=== PATIENT | female | born 1975 | race Caucasian/White ===

== ENCOUNTER 2017-01-05 18:13 | Emergency (ER) | payer OTHER ==
[2015-11-06 15:50] VITALS: BP 142/74
[~2017-01-05] VITALS: Ht 154.9 cm; Wt 44.5 kg
[~2017-01-05 18:13] MED LIST: ALBU2.5V5 IH; CODE30SO2 PO; GUAI10LI PO; MELO7.5O2 PO; NPH,100V5 SQ; ONDA4TAB7 PO; OXYC10TA PO; [UNRECOGNIZED DRUG - OTHER]; novalog
--- NOTE | 2017-01-05 18:32 | PHYS DOC ---
Past Medical History Past Medical History: Diabetes-Type II, Hepatitis, Seizure, Schizophrenia, Other Additional Past Medical Histor: chronic joint pain, hepititis C,Lupus,OCD, Encephalitis(as child) Past Surgical History: Other Additional Past Surgical Histo: NERVE, BLADDER, FOOT, SPINE,LYMPH NODES, breast augmentation Alcohol Use: None Drug Use: Marijuana Adult General Chief Complaint Chief Complaint: RIB PAIN HPI HPI Patient is a 41 year old female presents to the emergency department stating that she has having right posterior rib pain and discomfort. She states that she fell a few days ago. She states the pain is increased when she coughs. Patient states I believe it's all muscular. Patient does have a history of lupus as well as schizophrenia. Patient states she's not taken any of her medications except for her seizure medication. She has not taken anything for pain and discomfort. Patient denies shortness of air difficulty breathing she denies chest pain or discomfort. Review of Systems Review of Systems Constitutional: Denies fever or chills [] Eyes: Denies change in visual acuity, redness, or eye pain [] HENT: Denies nasal congestion or sore throat [] Respiratory: Denies cough or shortness of breath [] Cardiovascular: No additional information not addressed in HPI [] GI: Denies abdominal pain, nausea, vomiting, bloody stools or diarrhea [] : Denies dysuria or hematuria [] Musculoskeletal: Denies back pain or joint pain [] Integument: Denies rash or skin lesions [] Neurologic: Denies headache, focal weakness or sensory changes [] Endocrine: Denies polyuria or polydipsia [] Allergies Allergies Allergies Coded Allergies Type Severity Reaction Last Updated Verified haloperidol Allergy Intermediate 01/23/14 Yes lorazepam Allergy Intermediate 01/23/14 Yes prochlorperazine Allergy Intermediate 01/23/14 Yes promethazine HCl Allergy Intermediate 01/23/14 Yes Physical Exam Physical Exam Constitutional: Well developed, well nourished, no acute distress, non-toxic appearance. [] HENT: Normocephalic, atraumatic, bilateral external ears normal, oropharynx moist, no oral exudates, nose normal. [] Eyes: PERRLA, EOMI, conjunctiva normal, no discharge. [] Neck: Normal range of motion, no tenderness, supple, no stridor. [] Cardiovascular:Heart rate regular rhythm, no murmur [] Lungs & Thorax: Bilateral breath sounds clear to auscultation [] Skin: Warm, dry, no erythema, no rash. [] Back: No tenderness Extremities: No tenderness, no cyanosis, no clubbing, ROM intact, no edema. [] Neurologic: Alert and oriented X 3, normal motor function, normal sensory function, no focal deficits noted. [] Psychologic: Affect normal, judgement normal, mood normal. [] Current Patient Data Vital Signs Vital Signs Date Time Temp Pulse Resp B/P (MAP) Pulse Ox O2 Delivery O2 Flow Rate FiO2 01/05/17 18:25 98.4 88 24 114/68 (83) 100 Room Air 98.4 Lab Values Laboratory Tests Test 01/05/17 18:20 Urine Opiates Screen Neg (NEG) Urine Methadone Screen Neg (NEG) Urine Barbiturates Neg (NEG) Urine Phencyclidine Screen Neg (NEG) Urine Amphetamine/Methamphetamine Neg (NEG) Urine Benzodiazepines Screen Neg (NEG) Urine Cocaine Screen Pos (NEG) Urine Cannabinoids Screen Neg (NEG) Urine Ethyl Alcohol Neg (NEG) EKG EKG EKG with a heart rate of 68 this was completed a 1824 sinus rhythm noted no STEMI per Dr. Mensah. [] Radiology/Procedures Radiology/Procedures [] Course & Med Decision Making Course & Med Decision Making Pertinent Labs and Imaging studies reviewed. (See chart for details) Patient was seen here approximately 2 months ago for left rib pain. She was that time was provided with Flexeril. Patient states that she is out of her Flexeril as well. She really feels as though her muscles are spasming. Chest x-ray was negative for any abnormalities no rib fractures noted at 1913. When and despite with patient regards to her urinalysis report with a positive cocaine that her drug screen. Rib fractures were negative. Patient was noted to have left AGAINST MEDICAL ADVICE. [] Dragon Disclaimer Dragon Disclaimer This electronic medical record was generated, in whole or in part, using a voice recognition dictation system. Departure Departure Impression: Primary Impression: Left against medical advice Additional Impression: Rib pain on right side Disposition: 07 AGAINST MEDICAL ADVICE Condition: STABLE Referrals: NO PCP (PCP) Problem Qualifiers HUNG BECKMAN APRN Jan 05, 2017 18:32
[2017-01-05 18:56] LABS: BARBITURATES NEG (NEG); BENZODIAZEPINES NEG (NEG); CANNABINOIDS NEG (NEG); COCAINE POS (NEG); METHADONE NEG (NEG); OPIATES NEG (NEG); PHENCYCLIDINE NEG (NEG)
--- NOTE | 2017-01-06 07:27 | RAD ---
Indication: Fall with right posterior rib pain. Time of exam 1838 hours. There is mild cortical irregularity involving the right posterior ninth rib, suspicious for a fracture. No displaced rib fracture is seen. No parenchymal contusion, effusion or pneumothorax is detected. Impression: Probable right posterior ninth rib fracture.
--- NOTE | 2017-01-06 08:47 | EKG ---
[facility] [address] [place] [address] Test Date: 2017-01-05 Test Time: 18:24:39 Pat Name: LEO EVANGELISTA Department: Room: Gender: F Investigation Specialist: : 1975 Requested By: STAFF NON Order Number: [id number] Reading MD: Measurements Intervals Mcgehee Rate: 68 P: 63 SD: 150 QRS: 72 QRSD: 74 T: 55 QT: 344 QTc: 370 Interpretive Statements SINUS RHYTHM LEFT ATRIAL ABNORMALITY RI6.01 Unconfirmed report No previous ECG available for comparison
== END 2017-01-05 19:50 | disposition left against medical advice (07) ==
LOC: ER 18:13
DX: R07.81 Pleurodynia (principal); E11.9 Type 2 diabetes mellitus without complications; F20.9 Schizophrenia, unspecified; F12.10 Cannabis abuse, uncomplicated; F42.9 Obsessive-compulsive disorder, unspecified; Z86.19 Personal history of other infectious and parasitic diseases; Z88.8 Allergy status to other drugs, medicaments and biological substances
CPT/HCPCS: 71101; 80305; 80320; 81025; 93005; G0481; 99285-25

== ENCOUNTER 2017-04-09 16:43 | Emergency (ER) | payer OTHER ==
[~2017-04-09] VITALS: Ht 154.9 cm; Wt 44.5 kg
[2017-04-09] MEDS ORDERED: ONDANSETRON PF 4 MG/2 ML VIAL. IV ONE (17:15)
[2017-04-09] MEDS ORDERED: HYDROmorphone 2 MG/ML VIAL IV ONE (17:15)
[2017-04-09] MEDS ORDERED: IV NORMAL SALINE 1000ML BAG 1,000 ML IV ONE (17:15)
[2017-04-09 17:32] LABS: BILIRUBIN,URINE NEGATIVE (NEG); GLUCOSE,URINE NEGATIVE (NEG); NITRITE,URINE NEGATIVE (NEG); PROTEIN,URINE NEGATIVE (NEG-TRACE)
[2017-04-09 17:38] LABS: BASO % 0 % (0-3); EOS % 3 % (0-3); HEMATOCRIT 36.7 % (36.0-47.0); HEMOGLOBIN 12.3 g/dL (12.0-15.5); LYMPH # 1.4 x10^3/uL (1.0-4.8); LYMPH % 25 % (24-48); MEAN CORPUSCULAR HEMOGLOBIN 31 pg (25-35); MEAN CORPUSCULAR HGB CONC 34 g/dL (31-37); MEAN CORPUSCULAR VOLUME 92 fL (79-100); MONO % 7 % (0-9); NEUT % 65 % (31-73); PLATELET COUNT 183 x10^3/uL (140-400); RED BLOOD COUNT 3.99 x10^6/uL (3.50-5.40); RED CELL DISTRIBUTION WIDTH 14.1 % (11.5-14.5); WHITE BLOOD COUNT 5.6 x10^3/uL (4.0-11.0)
[2017-04-09 17:39] LABS: BARBITURATES NEG (NEG); BENZODIAZEPINES NEG (NEG); CANNABINOIDS NEG (NEG); COCAINE POS (NEG); METHADONE NEG (NEG); OPIATES NEG (NEG); PHENCYCLIDINE NEG (NEG)
[2017-04-09 17:40] LABS: BACTERIA,URINE FEW /HPF (0-FEW); RBC,URINE OCC /HPF (0-2); SQUAMOUS EPITHELIAL CELL,UR FEW /LPF; WBC,URINE 0 /HPF (0-4)
[2017-04-09 17:53] LABS: CALCIUM 8.2 mg/dL (8.5-10.1); CREATININE 1.1 mg/dL (0.6-1.0); GFR 54.2; POTASSIUM 3.9 mmol/L (3.5-5.1)
[2017-04-09 17:57] VITALS: BP 148/67
[2017-04-09 17:59] LABS: ALBUMIN/GLOBULIN RATIO 0.9 (1.0-1.7); TOTAL BILIRUBIN 0.2 mg/dL (0.2-1.0); TOTAL PROTEIN 6.2 g/dL (6.4-8.2)
--- NOTE | 2017-04-09 18:16 | RAD ---
Indication: Right flank pain with history of stones. Solitary right kidney. Technique: Axial images and coronal and sagittal reformatted images are provided. Comparison is from January 16, 2015. One or more of the following individualized dose reduction techniques were utilized for this examination: 1. Automated exposure control 2. Adjustment of the mA and/or kV according to patient size 3. Use of iterative reconstruction technique Findings: There is dependent atelectasis. There is no pleural effusion. The heart is not enlarged. Breast implants are noted. Solid organ evaluation is limited without contrast. Evaluation of the abdomen is also limited given paucity of intra-abdominal fat. Liver is grossly unremarkable. Gallbladder is normal in appearance. Spleen is not enlarged. Pancreas and adrenals are not evaluated. There is a solitary right kidney. On coronal reformats there may be a single punctate nonobstructing right renal calculus. There is no obstructing calculus. Right ureter is not dilated. It cannot be followed. There is atheromatous disease in the abdominal aorta. There is gastric distention. Evaluation for small bowel obstruction or mural thickening is limited on this noncontrast study. There is moderate amount of stool in the colon. Appendix is not confidently identified. Evaluation for retroperitoneal adenopathy or mesenteric mass is limited. Bladder is mildly distended and without stone. There is no definite adnexal mass. There are presumed calcified phleboliths, appear stable. Bony structures are intact. IMPRESSION: 1. Punctate nonobstructing calculus in the solitary right kidney. No definite obstructing calculus. 2. Nonspecific gastric distention. 3. No acute abdominal findings. Evaluation is limited given lack of IV and oral contrast as well as paucity of intra-abdominal fat. Electronically signed by: Pasquale Valentine MD (04/09/2017 6:12 PM) [facility]
--- NOTE | 2017-04-09 19:01 | PHYS DOC ---
Past Medical History Past Medical History: Hepatitis, Seizure, Schizophrenia, UTI Additional Past Medical Histor: ENCEPHALITIS, PSYCHOSIS Past Surgical History: Additional Past Surgical Histo: BREAST IMPLANTS, PARATHYROIDECTOMY, FOOT RECONSTRUCTION Alcohol Use: None Drug Use: None Adult General Chief Complaint Chief Complaint: ABDOMINAL PAIN HPI HPI Patient is a 41 year old female with a history significant for hepatitis C, lupus, spina bifida, type 2 diabetes insulin-dependent, seizure disorder, schizophrenia, 2, no left kidney from , presents here today complaining of right sided kidney pain is been there for 3 days IN nature. Patient has any fevers shakes chills nausea vomiting diarrhea chest pain shortness of breath cough cold or rhinorrhea. Patient reports she does have hematuria. Patient admits to dysuria. Patient reports last by mouth intake was prior to arrival. Patient has any bright red blood per rectum. Patient reports she smokes and drinks but avidly denies any drug use. Review of systems: Constitutional: Denies fever or chills Eyes: Denies change in visual acuity, redness, or eye pain HENT: Denies nasal congestion or sore throat All other review systems are negative except as documented in the history of present illness. Physical exam: Constitutional: Well developed, well nourished, no acute distress, non-toxic appearance. HENT: Normocephalic, atraumatic, bilateral external ears normal, oropharynx moist, no oral exudates, nose normal. Eyes: PERRLA, EOMI, conjunctiva normal, no discharge. Neck: Normal range of motion, no tenderness, supple, no stridor. Cardiovascular:Heart rate regular rhythm, Lungs & Thorax: Bilateral breath sounds clear to auscultation Abdomen: Bowel sounds normal, soft, no tenderness, no masses, no pulsatile masses. Skin: Warm, dry, no erythema, no rash. Back: Tenderness to palpation to patient's right flank. Abdomen was soft nontender no rebound or guarding. Patient does not present with any signs or symptoms of be consistent with an acute surgical abdomen. Extremities: No tenderness, no cyanosis, no clubbing, ROM intact, no edema. Neurologic: Alert and oriented X 3, normal motor function, normal sensory function, no focal deficits noted. Psychologic: Affect normal, judgement normal, mood normal. Assessment and plan this is a 41-year-old female who presents here today complaining of right flank pain. Patient had a negative ER workup including a normal CBC, CMP, urinalysis. Of note the patient's urine drug screen was positive for cocaine despite Allison denying any drug use. Patient's CT scan of her abdomen pelvis revealed no acute pathology. Patient initially received a dose of Dilaudid and IV fluids in the ED. Toradol was withheld secondary to her history of only one kidney. Patient was approached about her deceptive behavior regarding her cocaine use and she admits to utilizing cocaine but was embarrassed to say so. I discussed with the patient that she needs to be honest and truthfulness future so that we can treat her appropriately and dressed other comments that she is making. Patient appears to be apologetic for her deceptive behavior. Patient's pain is most likely secondary to mechanical strain. Patient will be discharged home in stable condition to utilize Tylenol as needed for pain. Current Medications Current Medications Current Medications Medications (Trade) Dose Ordered Sig/Mayank Start Time Stop Time Status Last Admin Dose Admin Hydromorphone HCl (Dilaudid) 0.5 mg 1X ONCE 04/09/17 17:15 04/09/17 17:16 DC 04/09/17 17:45 0.5 MG Ondansetron HCl (Zofran) 4 mg 1X ONCE 04/09/17 17:15 04/09/17 17:16 DC 04/09/17 17:44 4 MG Sodium Chloride 1,000 ml @ 1,000 mls/hr 1X ONCE 04/09/17 17:15 04/09/17 18:14 DC 04/09/17 17:44 1,000 MLS/HR Allergies Allergies Allergies Coded Allergies Type Severity Reaction Last Updated Verified haloperidol Allergy Intermediate 01/23/14 Yes lorazepam Allergy Intermediate 01/23/14 Yes prochlorperazine Allergy Intermediate 01/23/14 Yes promethazine HCl Allergy Intermediate 01/23/14 Yes Current Patient Data Vital Signs Vital Signs Date Time Temp Pulse Resp B/P (MAP) Pulse Ox O2 Delivery O2 Flow Rate FiO2 04/09/17 17:57 90 148/67 (94) Room Air 04/09/17 16:43 97.7 17 93 97.7 Lab Values Laboratory Tests Test 04/09/17 17:19 04/09/17 17:24 9/28/17 17:30 Urine Collection Type Unknown Urine Color Yellow Urine Clarity Clear Urine pH 7.0 Urine Specific Snowflake 1.025 Urine Protein Negative mg/dL (NEG-TRACE) Urine Glucose (UA) Negative mg/dL (NEG) Urine Ketones (Stick) Negative mg/dL (NEG) Urine Blood Negative (NEG) Urine Nitrite Negative (NEG) Urine Bilirubin Negative (NEG) Urine Urobilinogen Dipstick 1.0 mg/dL (0.2 mg/dL) Urine Leukocyte Esterase Negative (NEG) Urine RBC Occ /HPF (0-2) Urine WBC 0 /HPF (0-4) Urine Squamous Epithelial Cells Few /LPF Urine Bacteria Few /HPF (0-FEW) Urine Mucus Marked /LPF Urine Opiates Screen Neg (NEG) Urine Methadone Screen Neg (NEG) Urine Barbiturates Neg (NEG) Urine Phencyclidine Screen Neg (NEG) Urine Amphetamine/Methamphetamine Neg (NEG) Urine Benzodiazepines Screen Neg (NEG) Urine Cocaine Screen Pos (NEG) Urine Cannabinoids Screen Neg (NEG) Urine Ethyl Alcohol Neg (NEG) POC Urine HCG, Qualitative Hcg negative (Negative) White Blood Count 5.6 x10^3/uL (4.0-11.0) Red Blood Count 3.99 x10^6/uL (3.50-5.40) Hemoglobin 12.3 g/dL (12.0-15.5) Hematocrit 36.7 % (36.0-47.0) Mean Corpuscular Volume 92 fL (79-100) Mean Corpuscular Hemoglobin 31 pg (25-35) Mean Corpuscular Hemoglobin Concent 34 g/dL (31-37) Red Cell Distribution Width 14.1 % (11.5-14.5) Platelet Count 183 x10^3/uL (140-400) Neutrophils (%) (Auto) 65 % (31-73) Lymphocytes (%) (Auto) 25 % (24-48) Monocytes (%) (Auto) 7 % (0-9) Eosinophils (%) (Auto) 3 % (0-3) Basophils (%) (Auto) 0 % (0-3) Neutrophils # (Auto) 3.6 x10^3uL (1.8-7.7) Lymphocytes # (Auto) 1.4 x10^3/uL (1.0-4.8) Monocytes # (Auto) 0.4 x10^3/uL (0.0-1.1) Eosinophils # (Auto) 0.2 x10^3/uL (0.0-0.7) Basophils # (Auto) 0.0 x10^3/uL (0.0-0.2) Sodium Level 143 mmol/L (136-145) Potassium Level 3.9 mmol/L (3.5-5.1) Chloride Level 107 mmol/L (98-107) Carbon Dioxide Level 28 mmol/L (21-32) Anion Gap 8 (6-14) Blood Urea Nitrogen 17 mg/dL (7-20) Creatinine 1.1 mg/dL (0.6-1.0) H Estimated GFR (Cockcroft-Gault) 54.2 BUN/Creatinine Ratio 15 (6-20) Glucose Level 110 mg/dL (70-99) H Calcium Level 8.2 mg/dL (8.5-10.1) L Total Bilirubin 0.2 mg/dL (0.2-1.0) Aspartate Amino Transferase (AST) 17 U/L (15-37) Alanine Aminotransferase (ALT) 17 U/L (14-59) Alkaline Phosphatase 85 U/L (46-116) Total Protein 6.2 g/dL (6.4-8.2) L Albumin 3.0 g/dL (3.4-5.0) L Albumin/Globulin Ratio 0.9 (1.0-1.7) L Laboratory Tests 04/09/17 17:30 Laboratory Tests 04/09/17 17:30 EKG EKG [] Radiology/Procedures Radiology/Procedures [] Course & Med Decision Making Course & Med Decision Making Pertinent Labs and Imaging studies reviewed. (See chart for details) [] Dragon Disclaimer Dragon Disclaimer This electronic medical record was generated, in whole or in part, using a voice recognition dictation system. Departure Departure Impression: Primary Impression: Cocaine use Additional Impression: Back pain Disposition: 01 HOME, SELF-CARE Condition: IMPROVED Referrals: MARTHA AMAYA MD (PCP) Patient Instructions: Back Pain, Adult, Cocaine Abuse-Brief Problem Qualifiers KAISER MOLINA MD Apr 09, 2017 19:01
== END 2017-04-09 19:26 | disposition home or self-care (01) ==
LOC: ER 16:43
DX: M54.89 Other dorsalgia (principal); R31.9 Hematuria, unspecified; R30.0 Dysuria; F14.90 Cocaine use, unspecified, uncomplicated; Z87.440 Personal history of urinary (tract) infections; Z86.19 Personal history of other infectious and parasitic diseases; E11.9 Type 2 diabetes mellitus without complications; G40.909 Epilepsy, unspecified, not intractable, without status epilepticus; F20.9 Schizophrenia, unspecified; Z88.4 Allergy status to anesthetic agent; Z88.8 Allergy status to other drugs, medicaments and biological substances
CPT/HCPCS: 36415; 74176; 80053; 80307; 81001; 81025; 85025; 96361; 96374; 96375; 99285; J1170; J2405; J7030; G0479

== ENCOUNTER 2017-08-22 11:51 | Emergency (ER) | payer OTHER | END 2017-08-22 13:02 | disposition home or self-care (01) | LOC: ER 11:51 | DX: L25.9 Unspecified contact dermatitis, unspecified cause (principal); E11.9 Type 2 diabetes mellitus without complications; F20.9 Schizophrenia, unspecified; F12.10 Cannabis abuse, uncomplicated; Z88.8 Allergy status to other drugs, medicaments and biological substances | CPT/HCPCS: 99283 ==

== ENCOUNTER 2018-01-30 18:01 | Emergency (ER) | payer OTHER ==
[2018-01-30 18:37] LABS: URINE HCG POC HCG NEGATIVE (Negative)
[2018-01-30] MEDS ORDERED: IV NORMAL SALINE 1000ML BAG 1,000 ML IV (18:45)
[2018-01-30] MEDS: ONDANSETRON PF 4 MG/2 ML VIAL. IV (18:48)
[2018-01-30] MEDS: IV NORMAL SALINE 1000ML BAG 1,000 ML IV (18:48)
[2018-01-30] MEDS: ACETAMINOPHEN 325 MG TABLET. PO (18:49)
[2018-01-30 19:04] LABS: BILIRUBIN,URINE NEGATIVE (NEG); CLARITY,URINE CLOUDY; COLOR,URINE YELLOW; GLUCOSE,URINE NEGATIVE (NEG); NITRITE,URINE POSITIVE (NEG); PROTEIN,URINE 100 mg/dL (NEG-TRACE); UROBILINOGEN,URINE 0.2 mg/dL (0.2 mg/dL)
[2018-01-30 19:28] LABS: BASO % 0 % (0-3); EOS % 0 % (0-3); HEMATOCRIT 43.6 % (36.0-47.0); HEMOGLOBIN 14.8 g/dL (12.0-15.5); LYMPH # 0.4 x10^3/uL (1.0-4.8); LYMPH % 4 % (24-48); MEAN CORPUSCULAR HEMOGLOBIN 31 pg (25-35); MEAN CORPUSCULAR HGB CONC 34 g/dL (31-37); MEAN CORPUSCULAR VOLUME 91 fL (79-100); MONO # 0.6 x10^3/uL (0.0-1.1); MONO % 6 % (0-9); NEUT # 10.1 x10^3uL (1.8-7.7); NEUT % 90 % (31-73); PLATELET COUNT 226 x10^3/uL (140-400); RED BLOOD COUNT 4.82 x10^6/uL (3.50-5.40); RED CELL DISTRIBUTION WIDTH 14.2 % (11.5-14.5); WHITE BLOOD COUNT 11.3 x10^3/uL (4.0-11.0)
[2018-01-30 19:30] LABS: ADD MAN DIFF? YES
[2018-01-30 19:34] LABS: ANION GAP 8 (6-14); BLOOD UREA NITROGEN 16 mg/dL (7-20); BUN/CREATININE RATIO 12 (6-20); CALCIUM 9.2 mg/dL (8.5-10.1); CARBON DIOXIDE 28 mmol/L (21-32); CHLORIDE 100 mmol/L (98-107); CREATININE 1.3 mg/dL (0.6-1.0); GFR 44.5; GLUCOSE 128 mg/dL (70-99); SODIUM 136 mmol/L (136-145)
[2018-01-30 19:37] LABS: BACTERIA,URINE MANY /HPF (0-FEW); RBC,URINE 20-40 /HPF (0-2); SQUAMOUS EPITHELIAL CELL,UR MANY /LPF; WBC,URINE TNTC /HPF (0-4)
[2018-01-30] MEDS: KETOROLAC 30 MG/ML INJ. IV (19:45)
[2018-01-30 19:50] LABS: ALBUMIN 3.3 g/dL (3.4-5.0); ALBUMIN/GLOBULIN RATIO 0.8 (1.0-1.7); ALK PHOS 74 U/L (46-116); ALT (SGPT) 22 U/L (14-59); AST (SGOT) 15 U/L (15-37); TOTAL BILIRUBIN 0.6 mg/dL (0.2-1.0); TOTAL PROTEIN 7.6 g/dL (6.4-8.2)
[2018-01-30] MEDS ORDERED: AZITHROMYCIN 250 MG TABLET. PO (20:00)
[2018-01-30] MEDS ORDERED: cefTRIAXone IM 1 GM VIAL IM ×2 (20:38→21:00)
[2018-01-30 20:51] LABS: % BANDS 7 % (0-9); % LYMPHS 3 % (24-48); % MONOS 5 % (0-10); % SEGS 85 % (35-66); PLT ESTIMATE ADEQUATE (ADEQUATE)
== END 2018-01-30 20:40 | disposition left against medical advice (07) ==
LOC: ER 20:40
DX: N39.0 Urinary tract infection, site not specified (principal); R00.0 Tachycardia, unspecified; F20.9 Schizophrenia, unspecified; Z88.8 Allergy status to other drugs, medicaments and biological substances
CPT/HCPCS: 36415; 80053; 81001; 81025; 85007; 85025; 96374; 96375; 99284-25; J1885; J2405; J7030

== ENCOUNTER 2018-05-15 16:00 | Emergency (ER) | payer OTHER ==
[~2018-05-15] VITALS: Ht 152.4 cm; Wt 45.4 kg
[~2018-05-15 16:00] MED LIST changes: +CIPR500T94 PO; +CLOB15OI TP; +INSU100I17 SQ; +MUPI22OI2 TP
[2018-05-15 16:12] VITALS: BP 155/96
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
== END 2018-05-15 16:26 | disposition left against medical advice (07) ==
LOC: ER 16:00
DX: S13.9XXA Sprain of joints and ligaments of unspecified parts of neck, initial encounter (principal); S00.33XA Contusion of nose, initial encounter; M54.5 Low back pain; M25.561 Pain in right knee; M25.562 Pain in left knee; M79.642 Pain in left hand; F20.9 Schizophrenia, unspecified; Z88.8 Allergy status to other drugs, medicaments and biological substances; V49.9XXA Car occupant (driver) (passenger) injured in unspecified traffic accident, initial encounter; Y93.89 Activity, other specified; Y92.488 Other paved roadways as the place of occurrence of the external cause; Y99.8 Other external cause status
CPT/HCPCS: 99281

== ENCOUNTER 2018-11-14 09:48 | Emergency (ER) | payer OTHER, SELFPAY ==
[~2018-11-14] VITALS: Ht 157.5 cm; Wt 45.4 kg
[2018-11-14 10:04] VITALS: BP 122/71
[2018-11-14 10:23] LABS: BILIRUBIN,URINE NEGATIVE (NEG); CLARITY,URINE CLOUDY; COLOR,URINE YELLOW; NITRITE,URINE NEGATIVE (NEG); PROTEIN,URINE 30 mg/dL (NEG-TRACE); UROBILINOGEN,URINE 0.2 mg/dL (0.2 mg/dL)
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
[2018-11-14 10:37] LABS: BACTERIA,URINE MANY /HPF (0-FEW); SQUAMOUS EPITHELIAL CELL,UR MOD /LPF; WBC,URINE TNTC /HPF (0-4)
[2018-11-14] MEDS ORDERED: FLUC150T PO (10:54)
[2018-11-14] MEDS ORDERED: SULF1TAB24 PO (10:54)
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
== END 2018-11-14 10:59 | disposition home or self-care (01) ==
LOC: ER 09:48
DX: S60.012A Contusion of left thumb without damage to nail, initial encounter (principal); N39.0 Urinary tract infection, site not specified; F20.9 Schizophrenia, unspecified; Z72.0 Tobacco use; Z71.6 Tobacco abuse counseling; Z88.8 Allergy status to other drugs, medicaments and biological substances; X58.XXXA Exposure to other specified factors, initial encounter; Y93.89 Activity, other specified; Y92.89 Other specified places as the place of occurrence of the external cause; Y99.8 Other external cause status
CPT/HCPCS: 73140; 81001; 87086; 99285-25

== ENCOUNTER 2019-07-05 23:04 | Emergency (ER) | payer OTHER ==
[~2019-07-05] VITALS: Ht 154.9 cm; Wt 46.3 kg
[~2019-07-05 23:04] MED LIST changes: +FLUC150T PO; +ONDA4TAB12 PO; +SULF1TAB24 PO
[2019-07-05 23:13] VITALS: BP 151/85
--- NOTE | 2019-07-05 23:24 | PHYS DOC ---
Past Medical History Past Medical History: Diabetes-Type II, Schizophrenia, Other Additional Past Medical Histor: LUPUS, HEP C, MULTIPLE PERSONALITY DISORDER, PSYCHOSIS Past Surgical History: , Tubal ligation Additional Past Surgical Histo: L FOOT, BREAST AUGMENTATION Alcohol Use: None Drug Use: Cocaine, Marijuana Attending Signature I have participated in the care of this patient and I have reviewed and agree with all pertinent clinical information above including history, exam, and recommendations. Adult General Chief Complaint Chief Complaint: FOOT INJURY PAIN HPI HPI 43-year-old female known insulin-dependent diabetes presents to the emergency Department complaints of left foot pain primarily the plantar aspect of her foot. She denies any drainage, has had some chills. She denies any fever. States the pain started 2 days ago worsening today. She has a history metatarsal amputation at the age of 4. She states she does not take medications and has not for a number of months. Patient states even pain worse present of the ER for further evaluation. Blood sugar emergency department is 163. Review of Systems Review of Systems Constitutional: chills Respiratory: Denies cough or shortness of breath [] Cardiovascular: No additional information not addressed in HPI [] GI: Denies abdominal pain, nausea, vomiting, bloody stools or diarrhea [] Musculoskeletal: left foot pain Integument: Denies rash or skin lesions [] Neurologic: Denies headache, focal weakness or sensory changes [] All other systems were reviewed and found to be within normal limits, except as documented in this note. Allergies Allergies Allergies Coded Allergies Type Severity Reaction Last Updated Verified haloperidol Allergy Intermediate 01/23/14 Yes lorazepam Allergy Intermediate 01/23/14 Yes prochlorperazine Allergy Intermediate 01/23/14 Yes promethazine HCl Allergy Intermediate 01/23/14 Yes Physical Exam Physical Exam Constitutional: Well developed, well nourished, no acute distress, non-toxic appearance. [] HENT: Normocephalic, atraumatic, bilateral external ears normal, oropharynx moist, no oral exudates, nose normal. [] Cardiovascular:Heart rate regular rhythm, no murmur [] Lungs & Thorax: Bilateral breath sounds clear to auscultation [] Abdomen: Bowel sounds normal, soft, no tenderness, no masses, no pulsatile masses. [] Skin: Warm, dry, no erythema, no rash. [] Back: No tenderness, no CVA tenderness. [] Extremities: No tenderness, o edema. 3rd metatarsal amputation at the age of 4yo[] Neurologic: Alert and oriented X 3, no focal deficits noted. [] Psychologic: Affect normal, judgement normal, mood normal. [] Current Patient Data Vital Signs Vital Signs Date Time Temp Pulse Resp B/P (MAP) Pulse Ox O2 Delivery O2 Flow Rate FiO2 07/05/19 23:13 101 22 151/85 (107) 98 Room Air 07/05/19 23:10 98.4 98.4 Lab Values Laboratory Tests Test 07/05/19 23:17 07/05/19 23:30 Glucose (Fingerstick) 163 mg/dL (70-99) H White Blood Count 6.1 x10^3/uL (4.0-11.0) Red Blood Count 4.52 x10^6/uL (3.50-5.40) Hemoglobin 13.8 g/dL (12.0-15.5) Hematocrit 41.1 % (36.0-47.0) Mean Corpuscular Volume 91 fL (79-100) Mean Corpuscular Hemoglobin 31 pg (25-35) Mean Corpuscular Hemoglobin Concent 34 g/dL (31-37) Red Cell Distribution Width 14.6 % (11.5-14.5) H Platelet Count 191 x10^3/uL (140-400) Neutrophils (%) (Auto) 70 % (31-73) Lymphocytes (%) (Auto) 20 % (24-48) L Monocytes (%) (Auto) 8 % (0-9) Eosinophils (%) (Auto) 1 % (0-3) Basophils (%) (Auto) 1 % (0-3) Neutrophils # (Auto) 4.3 x10^3/uL (1.8-7.7) Lymphocytes # (Auto) 1.2 x10^3/uL (1.0-4.8) Monocytes # (Auto) 0.5 x10^3/uL (0.0-1.1) Eosinophils # (Auto) 0.1 x10^3/uL (0.0-0.7) Basophils # (Auto) 0.1 x10^3/uL (0.0-0.2) Sodium Level 141 mmol/L (136-145) Potassium Level 3.8 mmol/L (3.5-5.1) Chloride Level 103 mmol/L (98-107) Carbon Dioxide Level 26 mmol/L (21-32) Anion Gap 12 (6-14) Blood Urea Nitrogen 20 mg/dL (7-20) Creatinine 1.3 mg/dL (0.6-1.0) H Estimated GFR (Cockcroft-Gault) 44.3 BUN/Creatinine Ratio 15 (6-20) Glucose Level 156 mg/dL (70-99) H Lactic Acid Level 2.4 mmol/L (0.4-2.0) H Calcium Level 8.8 mg/dL (8.5-10.1) Total Bilirubin 0.3 mg/dL (0.2-1.0) Aspartate Amino Transferase (AST) 20 U/L (15-37) Alanine Aminotransferase (ALT) 14 U/L (14-59) Alkaline Phosphatase 71 U/L (46-116) Total Protein 7.3 g/dL (6.4-8.2) Albumin 3.6 g/dL (3.4-5.0) Albumin/Globulin Ratio 1.0 (1.0-1.7) Laboratory Tests 07/05/19 23:30 Laboratory Tests 07/05/19 23:30 EKG EKG [] Radiology/Procedures Radiology/Procedures [] Course & Med Decision Making Course & Med Decision Making Pertinent Labs and Imaging studies reviewed. (See chart for details) []43-year-old female known insulin-dependent diabetes presents to the emergency Department complaints of left foot pain primarily the plantar aspect of her foot. She denies any drainage, has had some chills. She denies any fever. States the pain started 2 days ago worsening today. She has a history metatarsal amputation at the age of 4. She states she does not take medications and has not for a number of months. Patient states even pain worse present of the ER for further evaluation. Blood sugar emergency department is 163. Call from nurse that the patient requested to leave against medical economics consultant Form signed per patient Recommend follow up with her PCP Labs reviewed what was back however no official read of xray at this time Dragon Disclaimer Dragon Disclaimer This electronic medical record was generated, in whole or in part, using a voice recognition dictation system. Departure Departure Impression: Primary Impression: Foot pain, left Disposition: AGAINST MEDICAL ADVICE Condition: STABLE Referrals: NO PCP (PCP) Patient Instructions: Discharge Against Medical Advice LENI MAXWELL MD Jul 05, 2019 23:24
[2019-07-05 23:41] LABS: BASO # 0.1 x10^3/uL (0.0-0.2); BASO % 1 % (0-3); EOS # 0.1 x10^3/uL (0.0-0.7); EOS % 1 % (0-3); HEMATOCRIT 41.1 % (36.0-47.0); HEMOGLOBIN 13.8 g/dL (12.0-15.5); LYMPH # 1.2 x10^3/uL (1.0-4.8); LYMPH % 20 % (24-48); MEAN CORPUSCULAR HEMOGLOBIN 31 pg (25-35); MEAN CORPUSCULAR HGB CONC 34 g/dL (31-37); MEAN CORPUSCULAR VOLUME 91 fL (79-100); MONO # 0.5 x10^3/uL (0.0-1.1); MONO % 8 % (0-9); NEUT # 4.3 x10^3/uL (1.8-7.7); NEUT % 70 % (31-73); PLATELET COUNT 191 x10^3/uL (140-400); RED BLOOD COUNT 4.52 x10^6/uL (3.50-5.40); RED CELL DISTRIBUTION WIDTH 14.6 % (11.5-14.5); WHITE BLOOD COUNT 6.1 x10^3/uL (4.0-11.0)
[2019-07-05 23:47] LABS: CALCIUM 8.8 mg/dL (8.5-10.1); CREATININE 1.3 mg/dL (0.6-1.0); GFR 44.3; POTASSIUM 3.8 mmol/L (3.5-5.1)
[2019-07-05 23:53] LABS: ALBUMIN 3.6 g/dL (3.4-5.0); TOTAL BILIRUBIN 0.3 mg/dL (0.2-1.0); TOTAL PROTEIN 7.3 g/dL (6.4-8.2)
--- NOTE | 2019-07-06 00:42 | RAD ---
Exam: Left foot 3 views INDICATION: Concern for infection/foreign body TECHNIQUE: Frontal, lateral and oblique views of the left foot Comparisons: None FINDINGS: Amputation deformity at the third digit is noted. There is mild soft tissue swelling noted at the level of the metatarsal heads. Bone mineralization is normal. No acute or healed fractures. No radiopaque foreign body identified. IMPRESSION: Amputation of the third digit with soft tissue swelling at the level of the metatarsal heads. No radiopaque foreign body identified. Electronically signed by: Juan Luis Munoz MD (07/06/2019 12:39 AM) [facility]
== END 2019-07-05 23:50 | disposition left against medical advice (07) ==
LOC: ER 23:04
DX: M79.672 Pain in left foot (principal); E11.9 Type 2 diabetes mellitus without complications; F20.9 Schizophrenia, unspecified; M32.9 Systemic lupus erythematosus, unspecified; Z88.8 Allergy status to other drugs, medicaments and biological substances
CPT/HCPCS: 36415; 73630; 80053; 82962; 83605; 85025; 87040; 87205; 99285-25

== ENCOUNTER 2019-07-07 01:09 | Emergency (ER) | payer OTHER ==
[~2019-07-07] VITALS: Ht 154.9 cm; Wt 46.3 kg
[2019-07-07 01:25] VITALS: BP 152/80
--- NOTE | 2019-07-07 01:51 | PHYS DOC ---
Past Medical History Past Medical History: Diabetes-Type II, Schizophrenia, Other Additional Past Medical Histor: LUPUS, HEP C, MULTIPLE PERSONALITY DISORDER, PSYCHOSIS Past Surgical History: , Tubal ligation Additional Past Surgical Histo: L FOOT, BREAST AUGMENTATION Alcohol Use: None Drug Use: Cocaine, Marijuana Adult General Chief Complaint Chief Complaint: FOOT INJURY PAIN [facility] HPI 43-year-old female with underlying history of diabetes, schizophrenia, substance abuse presents to the emergency department complaining of left foot pain. Patient was seen on 1223 for similar complaints however left against clinical medical assistant. Laboratory values as well as x-rays reviewed from 122 and not repeated today given no change in patient's physical examination. Patient denies fever, nausea, vomiting, chest pain, shortness of breath. She complains of pain to her left foot. All other ROS negative unless documented in HPI Review of Systems Review of Systems See Above Allergies Allergies Allergies Coded Allergies Type Severity Reaction Last Updated Verified haloperidol Allergy Intermediate 01/23/14 Yes lorazepam Allergy Intermediate 01/23/14 Yes prochlorperazine Allergy Intermediate 01/23/14 Yes promethazine HCl Allergy Intermediate 01/23/14 Yes Physical Exam Physical Exam See Above Constitutional: Well developed, well nourished, no acute distress, non-toxic appearance. [] HENT: Normocephalic, atraumatic, bilateral external ears normal, oropharynx moist, no oral exudates, nose normal. [] Eyes: PERRLA, EOMI, conjunctiva normal, no discharge. [] Cardiovascular:Heart rate regular rhythm, no murmur [] Lungs & Thorax: Bilateral breath sounds clear to auscultation [] Skin: Warm, dry, no erythema, no rash. [] Extremities: No tenderness, no cyanosis, no clubbing, ROM intact, no edema, left foot with callus appreciated to the bottom aspect of foot, she is missing her third digit secondary to surgery at the age 4, no evidence of signs of inflammation or infection at this time no drainage appreciated [] Neurologic: Alert and oriented X 3, no focal deficits noted. [] Psychologic: Affect normal, judgement normal, mood normal. [] Current Patient Data Vital Signs Vital Signs Date Time Temp Pulse Resp B/P (MAP) Pulse Ox O2 Delivery O2 Flow Rate FiO2 07/07/19 01:25 97.7 102 19 152/80 (104) 98 Room Air 97.7 EKG EKG [] Radiology/Procedures Radiology/Procedures [] Course & Med Decision Making Course & Med Decision Making Pertinent Labs and Imaging studies reviewed. (See chart for details) []43-year-old female with underlying history of diabetes, schizophrenia, substance abuse presents to the emergency department complaining of left foot pain. Patient was seen on 1223 for similar complaints however left against clinical medical assistant. Laboratory values as well as x-rays reviewed from 1223 and not repeated today given no change in patient's physical examination. Patient denies fever, nausea, vomiting, chest pain, shortness of breath. She complains of pain to her left foot. Labs reviewed from 07/05, white blood for count within normal limits, patient is afebrile on examination, lactic acid was mildly elevated 2.4 yesterday however no signs of infection. X-ray reviewed with evidence of no findings of foreign body or concern for degradation of bone. Testes findings with the patient recommended no repeat evaluation of this time. Discussed finding primary care physician and follow-up with podiatry given her underlying diabetes and no treatment or follow-up. Patient was also counseled on her multiple visits with AGAINST MEDICAL ADVICE leaving. Dragon Disclaimer Dragon Disclaimer This electronic medical record was generated, in whole or in part, using a voice recognition dictation system. Departure Departure Impression: Primary Impression: Left foot pain Disposition: HOME, SELF-CARE Condition: STABLE Referrals: NO PCP (PCP) Patient Instructions: Pain of Unknown Etiology (Pain without a known Cause) Additional Instructions: Recommend follow up with PCP 3 - 5 days Return to the ER with worsening symptoms, intractable pain, fever, altered mental status Tylenol/Motrin as needed for pain Xray from 07/05 negative for foreign body, labs from 07/05 negative for acute findings WBC normal No signs of infection LENI MAXWELL MD Jul 07, 2019 01:51
== END 2019-07-07 02:00 | disposition home or self-care (01) ==
LOC: ER 01:09
DX: M79.672 Pain in left foot (principal); E11.9 Type 2 diabetes mellitus without complications; F20.9 Schizophrenia, unspecified; M32.9 Systemic lupus erythematosus, unspecified; Z98.51 Tubal ligation status; Z88.8 Allergy status to other drugs, medicaments and biological substances
CPT/HCPCS: 99281

== ENCOUNTER 2019-12-25 17:02 | Emergency (ER) | payer OTHER ==
[~2019-12-25] VITALS: Ht 152.4 cm; Wt 45.0 kg
[2019-12-25 17:41] LABS: BILIRUBIN,URINE NEGATIVE (NEG); CLARITY,URINE CLEAR; COLOR,URINE YELLOW; NITRITE,URINE NEGATIVE (NEG); PROTEIN,URINE NEGATIVE (NEG-TRACE); UROBILINOGEN,URINE 0.2 mg/dL (0.2 mg/dL)
[2019-12-25 17:47] LABS: BACTERIA,URINE MANY /HPF (0-FEW); RBC,URINE OCC /HPF (0-2); SQUAMOUS EPITHELIAL CELL,UR MANY /LPF; WBC,URINE 0 /HPF (0-4)
[2019-12-25] MEDS ORDERED: IV NORMAL SALINE 1000ML BAG 1,000 ML IV SCH (18:18)
[2019-12-25 18:29] LABS: BASO % 1 % (0-3); EOS # 0.1 x10^3/uL (0.0-0.7); EOS % 3 % (0-3); HEMOGLOBIN 14.1 g/dL (12.0-15.5); LYMPH # 1.3 x10^3/uL (1.0-4.8); LYMPH % 26 % (24-48); MEAN CORPUSCULAR HEMOGLOBIN 31 pg (25-35); MEAN CORPUSCULAR HGB CONC 34 g/dL (31-37); MEAN CORPUSCULAR VOLUME 91 fL (79-100); MONO # 0.3 x10^3/uL (0.0-1.1); MONO % 7 % (0-9); NEUT # 3.2 x10^3/uL (1.8-7.7); NEUT % 64 % (31-73); PLATELET COUNT 213 x10^3/uL (140-400); RED BLOOD COUNT 4.52 x10^6/uL (3.50-5.40); RED CELL DISTRIBUTION WIDTH 14.2 % (11.5-14.5)
[2019-12-25] MEDS ORDERED: ONDANSETRON PF 4 MG/2 ML VIAL. IVP ONE (18:30)
[2019-12-25 18:36] LABS: CALCIUM 8.5 mg/dL (8.5-10.1); CREATININE 1.2 mg/dL (0.6-1.0); GFR 48.4; POTASSIUM 4.5 mmol/L (3.5-5.1)
[2019-12-25 18:38] LABS: BARBITURATES NEG (NEG); BENZODIAZEPINES NEG (NEG); CANNABINOIDS POS (NEG); COCAINE POS (NEG); METHADONE NEG (NEG); OPIATES NEG (NEG); PHENCYCLIDINE NEG (NEG)
[2019-12-25 18:40] LABS: AMPHETAMINE/METHAMPHETAMINE POS (NEG)
[2019-12-25 18:41] LABS: ALBUMIN 3.2 g/dL (3.4-5.0); ALBUMIN/GLOBULIN RATIO 1.1 (1.0-1.7); TOTAL BILIRUBIN 0.1 mg/dL (0.2-1.0)
[2019-12-25] MEDS ORDERED: fentaNYL PF VIAL 100 MCG/2 ML VIAL IVP ONE (18:45)
[2019-12-25] MEDS ORDERED: fentaNYL PF VIAL 100 MCG/2 ML VIAL ONE (18:55)
[2019-12-25 19:02] VITALS: BP 111/61
--- NOTE | 2019-12-25 19:02 | PHYS DOC ---
Past Medical History Past Medical History: Diabetes-Type II, Hypertension, Hepatitis, Schizophrenia, Other Additional Past Medical Histor: LUPUS, HEP C Past Surgical History: , Tubal ligation Additional Past Surgical Histo: L FOOT, BREAST AUGMENTATION Smoking Status: Current Every Day Smoker Alcohol Use: None Drug Use: Cocaine, Marijuana General Adult EDM: Chief Complaint: ABDOMINAL PAIN HPI: HPI: Patient is a 44 year old female who presents with complaint of lower abdominal pain as well as lower back pain and pain with urination for the last few days. Patient also indicates that she had a seizure 3 days ago and thinks it was about a week before that for her prior seizure. Patient indicates that she has a history of seizures and has not been on her seizure medication for over 2 years. Patient states that she thinks she has a urinary tract infection. She denies any chest pain or shortness of breath. She also denies any fever. She rates pain in her lower abdomen and back to a 7 out of 10. She denies any vomiting or diarrhea. [] Review of Systems: Review of Systems: Constitutional: Denies fever or chills. [] Respiratory: Denies cough or shortness of breath. [] Cardiovascular: Denies chest pain or edema. [] GI: Complains of lower abdominal pain without vomiting or diarrhea. [] : Complains of dysuria. [] Musculoskeletal: Complains of lower back pain. [] Integument: Denies rash. [] Neurologic: Denies headache, focal weakness or sensory changes. Positive seizures [] A full 10 point review of systems has been reviewed and is otherwise negative. Heart Score: Risk Factors: Risk Factors: DM, Current or recent (<one month) smoker, HTN, HLP, family history of CAD, obesity. Risk Scores: Score 0 - 3: 2.5% MACE over next 6 weeks - Discharge Home Score 4 - 6: 20.3% MACE over next 6 weeks - Admit for Clinical Observation Score 7 - 10: 72.7% MACE over next 6 weeks - Early Invasive Strategies Current Medications: Current Medications Medications (Trade) Dose Ordered Sig/Mayank Start Time Stop Time Status Last Admin Dose Admin Fentanyl Citrate (Fentanyl 2ml Vial) 100 mcg STK-MED ONCE 12/25/19 18:55 12/25/19 18:55 DC Ondansetron HCl (Zofran) 4 mg 1X ONCE 12/25/19 18:30 12/25/19 18:31 DC Sodium Chloride 1,000 ml @ 1,000 mls/hr Q1H 12/25/19 18:18 12/25/19 19:17 Allergies: Allergies: Allergies Coded Allergies Type Severity Reaction Last Updated Verified haloperidol Allergy Intermediate 01/23/14 Yes lorazepam Allergy Intermediate 01/23/14 Yes prochlorperazine Allergy Intermediate 01/23/14 Yes promethazine HCl Allergy Intermediate 01/23/14 Yes Physical Exam: PE: Constitutional: Well developed, well nourished, no acute distress, non-toxic appearance. [] HENT: Normocephalic, atraumatic, bilateral external ears normal, oropharynx moist, no oral exudates, nose normal. [] Eyes: PERRLA, EOMI, conjunctiva normal, no discharge. [] Neck: Normal range of motion, no tenderness, supple, no stridor. [] Cardiovascular: Mildly tachycardic rate with regular rhythm [] Lungs & Thorax: Bilateral breath sounds clear to auscultation [] Abdomen: Bowel sounds normal, soft, with suprapubic tenderness. [] Skin: Warm, dry, no erythema, no rash. [] Extremities: No tenderness, no cyanosis, no clubbing, ROM intact, no edema. [] Neurologic: Alert and oriented X 3, no focal deficits noted. [] Current Patient Data: Labs: Laboratory Tests Test 12/25/19 17:25 12/25/19 18:10 Urine Collection Type Void Urine Color Yellow Urine Clarity Clear Urine pH 6.0 (<5.0-8.0) Urine Specific [place] 1.025 (1.000-1.030) Urine Protein Negative mg/dL (NEG-TRACE) Urine Glucose (UA) Negative mg/dL (NEG) Urine Ketones (Stick) Negative mg/dL (NEG) Urine Blood Negative (NEG) Urine Nitrite Negative (NEG) Urine Bilirubin Negative (NEG) Urine Urobilinogen Dipstick 0.2 mg/dL (0.2 mg/dL) Urine Leukocyte Esterase Negative (NEG) Urine RBC Occ /HPF (0-2) Urine WBC 0 /HPF (0-4) Urine Squamous Epithelial Cells Many /LPF Urine Bacteria Many /HPF (0-FEW) Urine Mucus Mod /LPF Urine Opiates Screen Neg (NEG) Urine Methadone Screen Neg (NEG) Urine Barbiturates Neg (NEG) Urine Phencyclidine Screen Neg (NEG) Urine Amphetamine/Methamphetamine Pos (NEG) Urine Benzodiazepines Screen Neg (NEG) Urine Cocaine Screen Pos (NEG) Urine Cannabinoids Screen Pos (NEG) Urine Ethyl Alcohol Neg (NEG) White Blood Count 5.0 x10^3/uL (4.0-11.0) Red Blood Count 4.52 x10^6/uL (3.50-5.40) Hemoglobin 14.1 g/dL (12.0-15.5) Hematocrit 41.0 % (36.0-47.0) Mean Corpuscular Volume 91 fL (79-100) Mean Corpuscular Hemoglobin 31 pg (25-35) Mean Corpuscular Hemoglobin Concent 34 g/dL (31-37) Red Cell Distribution Width 14.2 % (11.5-14.5) Platelet Count 213 x10^3/uL (140-400) Neutrophils (%) (Auto) 64 % (31-73) Lymphocytes (%) (Auto) 26 % (24-48) Monocytes (%) (Auto) 7 % (0-9) Eosinophils (%) (Auto) 3 % (0-3) Basophils (%) (Auto) 1 % (0-3) Neutrophils # (Auto) 3.2 x10^3/uL (1.8-7.7) Lymphocytes # (Auto) 1.3 x10^3/uL (1.0-4.8) Monocytes # (Auto) 0.3 x10^3/uL (0.0-1.1) Eosinophils # (Auto) 0.1 x10^3/uL (0.0-0.7) Basophils # (Auto) 0.0 x10^3/uL (0.0-0.2) Sodium Level 143 mmol/L (136-145) Potassium Level 4.5 mmol/L (3.5-5.1) Chloride Level 105 mmol/L (98-107) Carbon Dioxide Level 33 mmol/L (21-32) H Anion Gap 5 (6-14) L Blood Urea Nitrogen 18 mg/dL (7-20) Creatinine 1.2 mg/dL (0.6-1.0) H Estimated GFR (Cockcroft-Gault) 48.4 BUN/Creatinine Ratio 15 (6-20) Glucose Level 88 mg/dL (70-99) Calcium Level 8.5 mg/dL (8.5-10.1) Total Bilirubin 0.1 mg/dL (0.2-1.0) L Aspartate Amino Transferase (AST) 16 U/L (15-37) Alanine Aminotransferase (ALT) 20 U/L (14-59) Alkaline Phosphatase 76 U/L (46-116) Total Protein 6.0 g/dL (6.4-8.2) L Albumin 3.2 g/dL (3.4-5.0) L Albumin/Globulin Ratio 1.1 (1.0-1.7) Lipase 140 U/L (73-393) Laboratory Tests 12/25/19 18:10 Laboratory Tests 12/25/19 18:10 Vital Signs: Vital Signs Date Time Temp Pulse Resp B/P (MAP) Pulse Ox O2 Delivery O2 Flow Rate FiO2 12/25/19 17:35 98.6 97 20 121/66 (84) 97 Room Air 98.6 EKG: EKG: [] Radiology/Procedures: Radiology/Procedures: [] Course & Med Decision Making: Course & Med Decision Making Pertinent Labs and Imaging studies reviewed. (See chart for details) Patient moved to room upon arrival was evaluated by ER medical staff after which an IV was established and blood work was drawn. Upon completion of blood work, plan was to obtain a CT of the abdomen pelvis. Prior to completion of CT, patient left department AGAINST MEDICAL ADVICE. Dragon Disclaimer: Dragon Disclaimer: This electronic medical record was generated, in whole or in part, using a voice recognition dictation system. Departure Departure Impression: Primary Impression: Lower abdominal pain Additional Impressions: Seizure disorder Methamphetamine abuse Cocaine abuse Disposition: 07 AGAINST MEDICAL ADVICE Condition: IMPROVED Referrals: NO PCP (PCP) Justicifation of Admission Dx: Justifications for Admission: Justification of Admission Dx: Comment: (Patient left AMA) BRANDIE GLOVER Jr. DO Dec 25, 2019 19:02
[2019-12-25] MEDS ORDERED: IOHEXOL 300 MG/ML 100ML VIAL. IV ONE (19:15)
[2019-12-25 19:31] LABS: PREG TEST PT QUAL NEGATIVE (NEG)
== END 2019-12-25 19:38 | disposition left against medical advice (07) ==
LOC: ER 17:02
DX: G40.909 Epilepsy, unspecified, not intractable, without status epilepticus (principal); R10.30 Lower abdominal pain, unspecified; F15.10 Other stimulant abuse, uncomplicated; F14.10 Cocaine abuse, uncomplicated; E11.9 Type 2 diabetes mellitus without complications; I10 Essential (primary) hypertension; F20.9 Schizophrenia, unspecified; F17.200 Nicotine dependence, unspecified, uncomplicated; Z98.51 Tubal ligation status; Z88.8 Allergy status to other drugs, medicaments and biological substances
CPT/HCPCS: 36415; 80053; 80307; 81001; 83690; 84703; 85025; 87086; 96374; 96375; 99284; J2405; J3010; J7030

== ENCOUNTER 2020-02-05 11:44 | Emergency (ER) | payer OTHER ==
[2020-02-06] MEDS ORDERED: AMOX500C PO (14:35)
== END 2020-02-05 12:26 | disposition left against medical advice (07) ==
LOC: ER 11:44
DX: K08.89 Other specified disorders of teeth and supporting structures (principal); Z53.21 Procedure and treatment not carried out due to patient leaving prior to being seen by health care provider

== ENCOUNTER 2020-02-06 13:47 | Emergency (ER) | payer OTHER ==
[~2020-02-06] VITALS: Ht 152.4 cm; Wt 46.3 kg
[2020-02-06 13:50] VITALS: BP 187/98
[2020-02-06] MEDS ORDERED: AMOXICILLIN 250 MG CAPSULE. PO ONE (14:30)
[2020-02-06] MEDS ORDERED: KETOROLAC 60 MG/2 ML VIAL. IM ONE (14:30)
[2020-02-06] MEDS ORDERED: AMOX500C PO (14:35)
--- NOTE | 2020-02-06 14:36 | PHYS DOC ---
Past Medical History Past Medical History: Diabetes-Type II, Hypertension, Hepatitis, Seizure, Schizophrenia, Other Additional Past Medical Histor: LUPUS, HEP C Past Surgical History: , Tubal ligation Additional Past Surgical Histo: L FOOT, BREAST AUGMENTATION Smoking Status: Current Every Day Smoker Alcohol Use: None Drug Use: Cocaine, Marijuana General Adult EDM: Chief Complaint: DENTAL PROBLEM HPI: HPI: The history was obtained from the patient. Patient is a 44-year-old female with PMH schizophrenia who presents with a chief complaint of dental pain. Patient states she developed dental pain gradually over the past several days. She states that she self pulled her top right molar 5 days ago due to discomfort. She states since then she has had to chew food on the left side of her mouth. She states that she does have multiple dental caries and missing teeth on the left side of her mouth. She states this has exacerbated her left-sided mouth pain. Denies any trismus. Denies any difficulty swallowing or breathing. Denies any vomiting or fevers. States that she actually presented to her dentist office today but did not want to wait in the lobby due to discomfort. She has tried Aleve and [place] at home with minimal relief. States that she can see her dentist later today as well as tomorrow. Denies any recent antibiotics. No other complaints. Review of Systems: Review of Systems: Constitutional: Denies fever or chills. Eyes: Denies change in visual acuity. HENT: Positive for dental pain Respiratory: Denies cough or shortness of breath. Cardiovascular: Denies chest pain or edema. GI: Denies abdominal pain, nausea, vomiting, bloody stools or diarrhea. : Denies dysuria. Musculoskeletal: Denies back pain or joint pain. Integument: Denies rash. Neurologic: Denies headache, focal weakness or sensory changes. Endocrine: Denies polyuria or polydipsia. Lymphatic: Denies swollen glands. Psychiatric: Denies depression or anxiety. Heart Score: Risk Factors: Risk Factors: DM, Current or recent (<one month) smoker, HTN, HLP, family history of CAD, obesity. Risk Scores: Score 0 - 3: 2.5% MACE over next 6 weeks - Discharge Home Score 4 - 6: 20.3% MACE over next 6 weeks - Admit for Clinical Observation Score 7 - 10: 72.7% MACE over next 6 weeks - Early Invasive Strategies Allergies: Allergies: Allergies Coded Allergies Type Severity Reaction Last Updated Verified haloperidol Allergy Intermediate 01/23/14 Yes lorazepam Allergy Intermediate 01/23/14 Yes prochlorperazine Allergy Intermediate 01/23/14 Yes promethazine HCl Allergy Intermediate 01/23/14 Yes Physical Exam: PE: Constitutional: Well developed, well nourished, no acute distress, non-toxic appearance. [] HENT: ENT: Numerous dental caries present. No overt evidence of periapical abscess formation. Tolerates saliva. No trismus. No erythema or exudate of the oropharynx. No airway obstruction or deep space infection. Normal phonation. Uvula midline. NECK: No midline cervical tenderness. Anterior cervical adenopathy not present. No tenderness of carotid sheath bilaterally. No submental tenderness, swelling, or erythema. Neck supple with full ROM and without signs of meningismus. Eyes: PERRLA, EOMI, conjunctiva normal, no discharge. [] Neck: Normal range of motion, no tenderness, supple, no stridor. [] Cardiovascular:Heart rate regular rhythm, no murmur [] Lungs & Thorax: Bilateral breath sounds clear to auscultation [] Abdomen: soft, no tenderness, no masses, no pulsatile masses. [] Skin: Warm, dry, no erythema, no rash. [] Back: No tenderness, no CVA tenderness. [] Extremities: No tenderness, no cyanosis, no clubbing, ROM intact, no edema. [] Neurologic: Alert and oriented X 3, normal motor function, normal sensory function, no focal deficits noted. [] Psychologic: Affect normal, judgement normal, mood normal. [] Current Patient Data: Vital Signs: Vital Signs Date Time Temp Pulse Resp B/P (MAP) Pulse Ox O2 Delivery O2 Flow Rate FiO2 02/06/20 13:50 98.0 98 24 187/98 (127) 97 Room Air 98.0 EKG: EKG: [] Radiology/Procedures: Radiology/Procedures: [] Course & Med Decision Making: Course & Med Decision Making Pertinent Labs and Imaging studies reviewed. (See chart for details) Patient is a 44-year-old female presents with chief complaint of gradual onset left lower dental pain. Initial vital signs normal. Physical exam without obvious abscess. No red flags for deep space infection appreciated. Normal phonation. Advanced imaging will be deferred. Laboratory [place] is also be deferred as I do not feel this will yield further diagnostic information. She was given intramuscular Toradol. She was given her first dose of amoxicillin. She does states she can follow-up with her dentist later today or tomorrow. I instructed her to continue to follow-up with her dentist either today or tomorrow. She was instructed to follow-up with her primary care physician. She will be discharged with a course of amoxicillin and encouraged on the usage of anti-inflammatories. Return precautions discussed and understood. Stable for discharge home. Dragon Disclaimer: Dragon Disclaimer: This electronic medical record was generated, in whole or in part, using a voice recognition dictation system. Departure Departure Impression: Primary Impression: Pain, dental Disposition: 01 HOME, SELF-CARE Condition: GOOD Referrals: NO PCP (PCP) Patient Instructions: Dental Caries Additional Instructions: [facility] [address] [place] [address] [facility] [address] [place] [address] [facility] [address] [facility] [place] [address] [facility] [address] [place] [address] [facility] [address] [place] [address] [facility] [address] [place] [address] [facility] [address] [place] [address] [facility] [address] [place] [address] [facility] [address] [place] [address] [facility] [address] [place] [address] Scripts Amoxicillin (AMOXICILLIN) 500 Mg Capsule 1 CAP PO BID for 10 Days, #20 CAP Prov: CLARENCE CARLOS DO 02/06/20 Justicifation of Admission Dx: Justifications for Admission: Justification of Admission Dx: N/A CLARENCE CARLOS DO Feb 06, 2020 14:36
== END 2020-02-06 14:48 | disposition home or self-care (01) ==
LOC: ER 13:47
DX: K08.89 Other specified disorders of teeth and supporting structures (principal); E11.9 Type 2 diabetes mellitus without complications; I10 Essential (primary) hypertension; F20.9 Schizophrenia, unspecified; K73.9 Chronic hepatitis, unspecified; F17.200 Nicotine dependence, unspecified, uncomplicated; F12.90 Cannabis use, unspecified, uncomplicated; F14.90 Cocaine use, unspecified, uncomplicated; Z98.51 Tubal ligation status; Z98.890 Other specified postprocedural states; Z88.8 Allergy status to other drugs, medicaments and biological substances; Z88.6 Allergy status to analgesic agent
CPT/HCPCS: 96372; 99283; J1885

== ENCOUNTER 2021-03-17 17:16 | Emergency (ER) | payer OTHER ==
[~2021-03-17] VITALS: Ht 154.9 cm; Wt 49.4 kg
[~2021-03-17 17:16] MED LIST changes: +AMOX500C PO
--- NOTE | 2021-03-17 17:51 | PHYS DOC ---
Past Medical History Past Medical History: Diabetes-Type II, Hypertension, Hepatitis, Seizure, Schizophrenia, UTI, Other Additional Past Medical Histor: LUPUS, HEP C (COLTENMitchYOCASTA Jak PRODUCTION EDITOR) Past Surgical History: , Tubal ligation Additional Past Surgical Histo: L FOOT, BREAST AUGMENTATION (YOCASTA NAVAS Jak PRODUCTION EDITOR) Smoking Status: Current Every Day Smoker Alcohol Use: None Drug Use: Cocaine, Marijuana (YOSEFYOCASTA Jak PRODUCTION EDITOR) General Adult EDM: Chief Complaint: SEIZURE HPI: HPI: Patient is a 45 year old female with history of seizures, hypertension, schizophrenia, diabetes type 2, who presents [place] the ED today [place] a local [place]. Patient states she had 4 seizures today. She states she has not taken her Keppra for a long time. Patient states the seizures were witnessed by a hotel people. Patient appears drunk. She states she had tequila today. (YOCASTA NAVAS Jak PRODUCTION EDITOR) Review of Systems: Review of Systems: Constitutional: Denies fever or chills. [] Eyes: Denies change in visual acuity. [] HENT: Denies nasal congestion or sore throat. [] Respiratory: Denies cough or shortness of breath. [] Cardiovascular: Denies chest pain or edema. [] GI: Denies abdominal pain, nausea, vomiting, bloody stools or diarrhea. [] : Denies dysuria. [] Musculoskeletal: Denies back pain or joint pain. [] Integument: Denies rash. [] Neurologic: Reports seizures. Denies headache, focal weakness or sensory changes. [] Psychiatric: Reports alcohol abuse (COLTENMitchYOCASTA Jak PRODUCTION EDITOR) Heart Score: C/O Chest Pain: N/A Risk Factors: Risk Factors: DM, Current or recent (<one month) smoker, HTN, HLP, family history of CAD, obesity. Risk Scores: Score 0 - 3: 2.5% MACE over next 6 weeks - Discharge Home Score 4 - 6: 20.3% MACE over next 6 weeks - Admit for Clinical Observation Score 7 - 10: 72.7% MACE over next 6 weeks - Early Invasive Strategies (YOCASTA NAVAS PRODUCTION EDITOR) Current Medications: Current Medications Medications (Trade) Dose Ordered Sig/Mayank Start Time Stop Time Status Last Admin Dose Admin Levetiracetam 1000 mg/Dextrose 110 ml @ 440 mls/hr 1X ONCE 03/17/21 18:00 03/17/21 18:14 Multivitamins 10 ml/Thiamine HCl 100 mg/Folic Acid 1 mg/Sodium Chloride 1,011.2 ml @ 1,000.088 mls/hr 1X ONCE 03/17/21 18:00 03/17/21 19:00 (YOCASTA NAVAS PRODUCTION EDITOR) Allergies: Allergies: Allergies Coded Allergies Type Severity Reaction Last Updated Verified haloperidol Allergy Intermediate 01/23/14 Yes lorazepam Allergy Intermediate 01/23/14 Yes prochlorperazine Allergy Intermediate 01/23/14 Yes promethazine HCl Allergy Intermediate 01/23/14 Yes (YOCASTA NAVAS PRODUCTION EDITOR) Physical Exam: PE: Constitutional: Well developed, well nourished, no acute distress, non-toxic appearance. [] HENT: Normocephalic, atraumatic, bilateral external ears normal, oropharynx moist, no oral exudates, nose normal. [] Eyes: PERRLA, EOMI, conjunctiva normal, no discharge. [] Neck: Normal range of motion, no tenderness, supple, no stridor. [] Cardiovascular:Heart rate regular rhythm, no murmur [] Lungs & Thorax: Bilateral breath sounds clear to auscultation [] Abdomen: Bowel sounds normal, soft, no tenderness, no masses, no pulsatile masses. [] Skin: Warm, dry, no erythema, no rash. [] Back: No tenderness, no CVA tenderness. [] Extremities: No tenderness, no cyanosis, no clubbing, ROM intact, no edema. [] Neurologic: Alert and oriented X 3, normal motor function, normal sensory function, no focal deficits noted. Cranial nerves II through XII intact Psychologic: flat affect, appears intoxicated. (YOCASTA NAVAS PRODUCTION EDITOR) Current Patient Data: Labs: Laboratory Tests Test 03/17/21 17:39 POC Urine HCG, Qualitative Hcg negative (Negative) Vital Signs: Vital Signs Date Time Temp Pulse Resp B/P (MAP) Pulse Ox O2 Delivery O2 Flow Rate FiO2 03/17/21 17:30 98.5 94 20 97/61 (74) 99 Room Air 98.5 (YOCASTA NAVAS PRODUCTION EDITOR) EKG: EKG: [] (YOCASTA NAVAS PRODUCTION EDITOR) Radiology/Procedures: Radiology/Procedures: [] (YOCASTA NAVAS APRN) Course & Med Decision Making: Course & Med Decision Making Pertinent Labs and Imaging studies reviewed. (See chart for details) This a 45-year-old female patient with history of seizures presenting today reporting she had 4 seizures today. Patient is supposed to be on Keppra, she states she has not taken the medications for a long time. Patient also reports drinking alcohol today. CBC, CMP with no acute findings, UDS positive for cocaine. Urine analysis is contaminated with squamous cells epithelium. Patient has no UTI symptoms. Patient was given Keppra IV in the ED. She has not had any seizures. She was discharged with Keppra. Follow-up with neurologist and PCP next week (YOCASTA NAVAS APRN) Dragon Disclaimer: Dragon Disclaimer: This electronic medical record was generated, in whole or in part, using a voice recognition dictation system. (YOCASTA NAVAS APRN) Departure Departure Impression: Primary Impression: Seizure Additional Impression: Cocaine abuse Disposition: HOME / SELF CARE / HOMELESS Condition: STABLE Referrals: NO PCP (PCP) DANIS EWING MD follow up in one week Patient Instructions: Seizure, Adult Additional Instructions: You were evaluated in the emergency room for seizures. We put you back on your Keppra. Take it as prescribed. Follow-up with your primary care doctor and neurologist this week Scripts Levetiracetam (KEPPRA) 1,000 Mg Tablet 1 TAB PO BID for 90 Days, #180 TAB 0 Refills Prov: YOCASTA NAVAS APRN 03/17/21 Attending Signature Attending Signature I have reviewed the PA/PLAIN GOODS HEMMER's note and plan of care. I was available for consultation as needed during the patient's visit in the emergency department. I agree with the clinical impression, plan, and disposition. (ANDREW MONROE DO) YOCASTA NAVAS APRN Mar 17, 2021 17:51 ANDREW MONROE DO Mar 18, 2021 00:33
[2021-03-17 17:54] LABS: BILIRUBIN,URINE NEGATIVE (NEG); CLARITY,URINE CLEAR; COLOR,URINE YELLOW; NITRITE,URINE NEGATIVE (NEG); PH,URINE 6.5 (<5.0-8.0); PROTEIN,URINE NEGATIVE (NEG-TRACE); UROBILINOGEN,URINE 0.2 mg/dL (0.2 mg/dL)
[2021-03-17] MEDS ORDERED: MULTIVIT INFUSN,ADULT 4,VIT K 10 ML, THIAMINE INJ 100 MG, FOLIC ACID INJ 1 MG in IV NOR... IV ONE (18:00)
[2021-03-17] MEDS ORDERED: levETIRAcetam 1,000 MG in IV DEXTROSE 5% 100ML 100 ML IV ONE (18:00)
[2021-03-17 18:03] LABS: BASO # 0.1 x10^3/uL (0.0-0.2); BASO % 1 % (0-3); EOS # 0.1 x10^3/uL (0.0-0.7); EOS % 1 % (0-3); HEMATOCRIT 42.5 % (36.0-47.0); HEMOGLOBIN 14.6 g/dL (12.0-15.5); LYMPH % 15 % (24-48); MEAN CORPUSCULAR HEMOGLOBIN 31 pg (25-35); MEAN CORPUSCULAR HGB CONC 34 g/dL (31-37); MEAN CORPUSCULAR VOLUME 91 fL (79-100); MONO # 0.5 x10^3/uL (0.0-1.1); MONO % 7 % (0-9); NEUT # 5.2 x10^3/uL (1.8-7.7); NEUT % 76 % (31-73); PLATELET COUNT 197 x10^3/uL (140-400); RED BLOOD COUNT 4.65 x10^6/uL (3.50-5.40); RED CELL DISTRIBUTION WIDTH 14.9 % (11.5-14.5); WHITE BLOOD COUNT 6.8 x10^3/uL (4.0-11.0)
[2021-03-17 18:07] LABS: BACTERIA,URINE FEW /HPF (0-FEW); RBC,URINE 0 /HPF (0-2)
[2021-03-17 18:09] LABS: AMPHETAMINE/METHAMPHETAMINE NEG (NEG); BARBITURATES NEG (NEG); BENZODIAZEPINES NEG (NEG); CANNABINOIDS NEG (NEG); COCAINE POS (NEG); METHADONE NEG (NEG); OPIATES NEG (NEG); PHENCYCLIDINE NEG (NEG)
[2021-03-17 18:13] LABS: CALCIUM 8.2 mg/dL (8.5-10.1); CREATININE 1.3 mg/dL (0.6-1.0); GFR 43.9; POTASSIUM 3.8 mmol/L (3.5-5.1)
[2021-03-17 18:19] LABS: ALBUMIN 3.2 g/dL (3.4-5.0); TOTAL BILIRUBIN 0.3 mg/dL (0.2-1.0); TOTAL PROTEIN 6.4 g/dL (6.4-8.2)
[2021-03-17 19:30] VITALS: BP 151/89
[2021-03-17] MEDS ORDERED: LEVE100020 PO (20:18)
== END 2021-03-17 20:25 | disposition home or self-care (01) ==
LOC: ER 17:16
DX: R56.9 Unspecified convulsions (principal); F14.10 Cocaine abuse, uncomplicated; E11.9 Type 2 diabetes mellitus without complications; I10 Essential (primary) hypertension; F20.9 Schizophrenia, unspecified; F17.200 Nicotine dependence, unspecified, uncomplicated; Z88.8 Allergy status to other drugs, medicaments and biological substances
CPT/HCPCS: 36415; 80053; 80307; 81001; 81025; 85025; 87086; 96365; 96368; 99284; G0480; J1953; J3411; J3490; J7030; J7060

== ENCOUNTER 2021-06-12 06:28 | Emergency (ER) | payer OTHER ==
[~2021-06-12] VITALS: Ht 165.1 cm; Wt 50.0 kg
[~2021-06-12 06:28] MED LIST changes: +LEVE100020 PO
[2021-06-12 06:50] VITALS: BP 151/89
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
== END 2021-06-12 09:37 | disposition left against medical advice (07) ==
LOC: ER 06:28
DX: S22.31XA Fracture of one rib, right side, initial encounter for closed fracture (principal); E11.9 Type 2 diabetes mellitus without complications; I10 Essential (primary) hypertension; F17.200 Nicotine dependence, unspecified, uncomplicated; F20.9 Schizophrenia, unspecified; Z88.8 Allergy status to other drugs, medicaments and biological substances; Y08.89XA Assault by other specified means, initial encounter; Y93.89 Activity, other specified; Y92.89 Other specified places as the place of occurrence of the external cause; Y99.8 Other external cause status
CPT/HCPCS: 71101; 99283

== ENCOUNTER 2021-06-13 18:49 | Emergency (ER) | payer OTHER ==
[~2021-06-13] VITALS: Ht 165.1 cm; Wt 50.0 kg
[2021-06-13 19:05] VITALS: BP 131/62
[2021-06-13 19:15] LABS: BILIRUBIN,URINE SMALL (NEG); CLARITY,URINE CLEAR; COLOR,URINE YELLOW; NITRITE,URINE NEGATIVE (NEG); PH,URINE 5.5 (<5.0-8.0); PROTEIN,URINE 100 mg/dL (NEG-TRACE); UROBILINOGEN,URINE 0.2 mg/dL (0.2 mg/dL)
[2021-06-13 19:22] LABS: AMPHETAMINE/METHAMPHETAMINE POS (NEG); BACTERIA,URINE 0 /HPF (0-FEW); BARBITURATES NEG (NEG); BENZODIAZEPINES NEG (NEG); CANNABINOIDS NEG (NEG); COCAINE POS (NEG); METHADONE NEG (NEG); OPIATES NEG (NEG); PHENCYCLIDINE NEG (NEG); RBC,URINE RARE /HPF (0-2)
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
[2021-06-13 20:28] LABS: BASO # 0.1 x10^3/uL (0.0-0.2); BASO % 1 % (0-3); EOS % 0 % (0-3); HEMATOCRIT 39.8 % (36.0-47.0); HEMOGLOBIN 13.5 g/dL (12.0-15.5); LYMPH # 1.1 x10^3/uL (1.0-4.8); LYMPH % 10 % (24-48); MEAN CORPUSCULAR HEMOGLOBIN 30 pg (25-35); MEAN CORPUSCULAR HGB CONC 34 g/dL (31-37); MEAN CORPUSCULAR VOLUME 89 fL (79-100); MONO # 0.7 x10^3/uL (0.0-1.1); MONO % 7 % (0-9); NEUT # 8.5 x10^3/uL (1.8-7.7); NEUT % 82 % (31-73); PLATELET COUNT 204 x10^3/uL (140-400); RED BLOOD COUNT 4.46 x10^6/uL (3.50-5.40); WHITE BLOOD COUNT 10.4 x10^3/uL (4.0-11.0)
[2021-06-13 20:51] LABS: CALCIUM 8.9 mg/dL (8.5-10.1); CREATININE 1.5 mg/dL (0.6-1.0); GFR 37.2
[2021-06-13 20:53] LABS: ALBUMIN 3.4 g/dL (3.4-5.0); TOTAL BILIRUBIN 0.5 mg/dL (0.2-1.0); TOTAL PROTEIN 6.7 g/dL (6.4-8.2)
--- NOTE | 2021-06-13 21:01 | RAD ---
Exam: CT of abdomen and pelvis without contrast INDICATION: Stone study, right flank pain TECHNIQUE: Sequential axial images through the abdomen and pelvis obtained without IV contrast. Sagit praneeth and coronal reformatted images were reconstructed from the axial data and reviewed. Exposure: One or more of the following in the visualized dose reduction techniques were utilized for this examination: 1. Automated exposure control 2. Adjustment of the MA and/or KV according to patient size 3. Use of iterative of reconstructive technique Comparisons: 07/06/2020 FINDINGS: Heart size is normal. No pericardial effusion. Visualized lung bases are clear. No pleural effusion. Evaluation of solid organs is limited secondary to noncontrast technique. Liver, spleen, pancreas, gallbladder and adrenals are unremarkable. Left kidney is absent. No perinephric inflammation or hydronephrosis. No renal or ureteral calculi ar e identified. Bladder is partially distended and not well evaluated. Uterus is not enlarged. There is a cystic lesi on at the right adnexa measuring approximately 5 cm in long axis. Mild stool burden noted throughout the colon. Small bowel is unremarkable. No free intra-abdominal ai r or fluid. No obstruction. Abdominal aorta has normal course and caliber. No enlarged abdominal lymph nodes are identified. No suspicious osseous lesions or acute fractures. IMPRESSION: 1. No renal or ureteral calculi. No evidence for obstructive uropathy. 2. Cystic lesion at the right adnexa measuring up to 5 cm in diameter incompletely characterized on CT, may be ovarian in etiology. Ultrasound would better evaluate. Electronically signed by: Juan Luis Munoz MD (06/13/2021 8:59 PM) [facility]
--- NOTE | 2021-06-13 23:06 | RAD ---
US DPLX PELVIS LIMITED US Clinical Indication: Reason: right ovarian cyst / Spl. Instructions: / History: Comparison: CT abdomen and pelvis without contrast, earlier same day. TECHNIQUE: Real-time ultrasound imaging of the pelvis using transabdominal window is performed. Findings: Please note the patient refused to finish the exam. Uterus measures 7.6 x 4.7 x 4.4 cm. There is no focal abnormality. The endometrial stripe measures ap proximately 8 mm. The ovaries are not imaged. The cul-de-sac is not imaged. IMPRESSION: 1. Incomplete exam. 2. The ovaries are not imaged. Electronically signed by: Shady Devine MD (06/13/2021 11:04 PM) [facility]
== END 2021-06-13 23:35 | disposition home or self-care (01) ==
LOC: ER 18:49
DX: N83.201 Unspecified ovarian cyst, right side (principal); R56.9 Unspecified convulsions; E11.9 Type 2 diabetes mellitus without complications; I10 Essential (primary) hypertension; F20.9 Schizophrenia, unspecified; F17.200 Nicotine dependence, unspecified, uncomplicated; F10.20 Alcohol dependence, uncomplicated; Z87.440 Personal history of urinary (tract) infections; Z98.890 Other specified postprocedural states; Z98.51 Tubal ligation status; Z88.8 Allergy status to other drugs, medicaments and biological substances; Y90.0 Blood alcohol level of less than 20 mg/100 ml
CPT/HCPCS: 36415; 74176; 76857; 80053; 80307; 81001; 81025; 85025; 87086; 99285; G0480

== ENCOUNTER 2021-06-26 17:22 | Emergency (ER) | payer OTHER ==
[~2021-06-26] VITALS: Ht 154.9 cm; Wt 45.5 kg
[2021-06-26 17:28] VITALS: BP 149/87
[2021-06-26 18:02] LABS: BILIRUBIN,URINE NEGATIVE (NEG); CLARITY,URINE CLEAR; COLOR,URINE YELLOW; NITRITE,URINE NEGATIVE (NEG); PROTEIN,URINE NEGATIVE (NEG-TRACE); UROBILINOGEN,URINE 0.2 mg/dL (0.2 mg/dL)
--- NOTE | 2021-06-26 18:08 | PHYS DOC ---
Past Medical History Past Medical History: Diabetes-Type II, Hypertension, Hepatitis, Seizure, Schizophrenia, UTI, Other Additional Past Medical Histor: LUPUS Past Surgical History: Tubal ligation Additional Past Surgical Histo: LEFT FOOT SURGERY, CYST REMOVED FROM OVERY, PARATHYROID REMOVAL Smoking Status: Current Every Day Smoker Alcohol Use: Heavy Drug Use: Cocaine, Marijuana General Adult EDM: Chief Complaint: VAGINAL BLEEDING HPI: HPI: Patient is a 45 year old female who presents with continued vaginal bleeding for the last 10 days. 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 She states she has not been wearing a pad or a tampon but using full paper in her underwear. She denies any pain right now. She states she was having abdominal cramping also. She has not gotten any worse than she has been. She states at times she will have very small clots. Review of Systems: Review of Systems: Constitutional: Denies fever or chills. [] Eyes: Denies change in visual acuity. [] HENT: Denies nasal congestion or sore throat. [] Respiratory: Denies cough or shortness of breath. [] Cardiovascular: Denies chest pain or edema. [] GI: +abdominal pain cramping, nausea, vomiting, bloody stools or diarrhea. [] : Denies dysuria. + Intermittent vaginal bleeding [] Musculoskeletal: Denies back pain or joint pain. [] Integument: Denies rash. [] Neurologic: Denies headache, focal weakness or sensory changes. [] Endocrine: Denies polyuria or polydipsia. [] Lymphatic: Denies swollen glands. [] Psychiatric: Denies depression or anxiety. [] Heart Score: C/O Chest Pain: No Allergies: Allergies: Allergies Coded Allergies Type Severity Reaction Last Updated Verified haloperidol Allergy Intermediate 01/23/14 Yes lorazepam Allergy Intermediate 01/23/14 Yes prochlorperazine Allergy Intermediate 01/23/14 Yes promethazine HCl Allergy Intermediate 01/23/14 Yes Physical Exam: PE: Constitutional: Well developed, well nourished, no acute distress, non-toxic appearance. [] HENT: Normocephalic, atraumatic, bilateral external ears normal, oropharynx moist, no oral exudates, nose normal. [] Eyes: PERRLA, EOMI, conjunctiva normal, no discharge. [] Neck: Normal range of motion, no tenderness, supple, no stridor. [] Cardiovascular:Heart rate regular rhythm, no murmur [] Lungs & Thorax: Bilateral breath sounds clear to auscultation [] Abdomen: Bowel sounds normal, soft, no tenderness, no masses, no pulsatile masses. [] Skin: Warm, dry, no erythema, no rash. [] Back: No tenderness, no CVA tenderness. [] Extremities: No tenderness, no cyanosis, no clubbing, ROM intact, no edema. [] Neurologic: Alert and oriented X 3, normal motor function, normal sensory function, no focal deficits noted. [] Psychologic: Affect normal, judgement normal, mood normal. [] Normal physical exam Current Patient Data: Vital Signs: Vital Signs Date Time Temp Pulse Resp B/P (MAP) Pulse Ox O2 Delivery O2 Flow Rate FiO2 06/26/21 17:28 98.3 74 18 149/87 (107) 91 Room Air 98.3 EKG: EKG: [] Radiology/Procedures: Radiology/Procedures: [] Course & Med Decision Making: Course & Med Decision Making Pertinent Labs and Imaging studies reviewed. (See chart for details) See HPI. Alert and oriented x4. Ambulatory steady gait. Speaks in full clear sentences. Abdomen is soft and nontender. No CVA tenderness. Skin pink warm and dry. Pelvic Exam: Electric Brain Wave Equipment Mechanic present Abdomen: Nontender External Genitalia: Normal Skin Speculum: Normal vaginal mucosa, normal cervical discharge, no vaginal bleeding Bimanual: No adnexal masses or tenderness, No CMT Patient eloped from room before blood work or anything else could be done for the patient. [] Dragon Disclaimer: Dragon Disclaimer: This electronic medical record was generated, in whole or in part, using a voice recognition dictation system. 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
[2021-06-26 18:16] LABS: BACTERIA,URINE FEW /HPF (0-FEW); RBC,URINE 0 /HPF (0-2)
[2021-06-27 20:10] LABS: GC PROBE Negative (Negative)
== END 2021-06-26 17:57 | disposition left against medical advice (07) ==
LOC: ER 17:22
DX: N93.9 Abnormal uterine and vaginal bleeding, unspecified (principal); E11.9 Type 2 diabetes mellitus without complications; I10 Essential (primary) hypertension; F20.9 Schizophrenia, unspecified; F17.200 Nicotine dependence, unspecified, uncomplicated; F10.20 Alcohol dependence, uncomplicated; Y90.9 Presence of alcohol in blood, level not specified; Z88.8 Allergy status to other drugs, medicaments and biological substances
CPT/HCPCS: 81001; 87491; 87591; 99284; Q0111

== ENCOUNTER 2021-06-27 04:45 | Emergency (ER) | payer OTHER ==
[2021-06-26 17:28] VITALS: BP 149/87
== END 2021-06-27 05:15 | disposition left against medical advice (07) ==
LOC: ER 04:45
DX: R10.9 Unspecified abdominal pain (principal); Z53.21 Procedure and treatment not carried out due to patient leaving prior to being seen by health care provider

== ENCOUNTER 2021-07-31 17:12 | Emergency (ER) | payer OTHER ==
[~2021-07-31] VITALS: Ht 152.4 cm; Wt 51.1 kg
[2021-07-31 17:49] VITALS: BP 132/90
--- NOTE | 2021-07-31 18:33 | RAD ---
EXAMINATION: Right hand radiograph. VIEWS: 3 COMPARISON: None INDICATION:45 years, Female, pain, injury. FINDINGS/ IMPRESSION: Acute dorsally displaced fifth distal phalangeal base, involving articular surface. Soft tissue swell ing about the fracture is visualized. No dislocation or subluxation. Electronically signed by: Zelda Mcbride MD (07/31/2021 6:31 PM) [facility]
== END 2021-07-31 19:19 | disposition left against medical advice (07) ==
LOC: ER 17:12
DX: M20.001 Unspecified deformity of right finger(s) (principal); Z53.21 Procedure and treatment not carried out due to patient leaving prior to being seen by health care provider
CPT/HCPCS: 73130

== ENCOUNTER 2021-08-10 04:05 | Emergency (ER) | payer OTHER ==
[~2021-08-10] VITALS: Ht 154.9 cm; Wt 45.0 kg
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
[2021-08-10 06:04] LABS: CALCIUM 8.3 mg/dL (8.5-10.1); CREATININE 1.3 mg/dL (0.6-1.0); GFR 43.9; POTASSIUM 3.8 mmol/L (3.5-5.1)
[2021-08-10 06:10] LABS: ALBUMIN 3.2 g/dL (3.4-5.0); ALBUMIN/GLOBULIN RATIO 0.9 (1.0-1.7); TOTAL BILIRUBIN 0.2 mg/dL (0.2-1.0); TOTAL PROTEIN 6.9 g/dL (6.4-8.2)
[2021-08-10 06:12] LABS: BASO # 0.1 x10^3/uL (0.0-0.2); BASO % 1 % (0-3); EOS # 0.1 x10^3/uL (0.0-0.7); EOS % 1 % (0-3); HEMATOCRIT 42.1 % (36.0-47.0); HEMOGLOBIN 14.1 g/dL (12.0-15.5); LYMPH # 1.3 x10^3/uL (1.0-4.8); LYMPH % 19 % (24-48); MEAN CORPUSCULAR HEMOGLOBIN 30 pg (25-35); MEAN CORPUSCULAR HGB CONC 34 g/dL (31-37); MEAN CORPUSCULAR VOLUME 89 fL (79-100); MONO # 0.5 x10^3/uL (0.0-1.1); MONO % 7 % (0-9); NEUT # 4.8 x10^3/uL (1.8-7.7); NEUT % 72 % (31-73); PLATELET COUNT 217 x10^3/uL (140-400); RED BLOOD COUNT 4.74 x10^6/uL (3.50-5.40); RED CELL DISTRIBUTION WIDTH 14.5 % (11.5-14.5); WHITE BLOOD COUNT 6.7 x10^3/uL (4.0-11.0)
[2021-08-10 06:21] LABS: BILIRUBIN,URINE NEGATIVE (NEG); CLARITY,URINE CLEAR; COLOR,URINE YELLOW; NITRITE,URINE NEGATIVE (NEG); PROTEIN,URINE 100 mg/dL (NEG-TRACE); UROBILINOGEN,URINE 0.2 mg/dL (0.2 mg/dL)
[2021-08-10 06:29] VITALS: BP 101/62
[2021-08-10] MEDS ORDERED: CONTRAST GIVEN. MC PRN (06:30)
[2021-08-10] MEDS ORDERED: LIDOCAINE 1% Multi-Dose 20 ML VIAL. INJ ONE (06:30)
--- NOTE | 2021-08-10 06:39 | RAD ---
XR FINGER(S)_RIGHT 2+VIEWS Clinical Indication: Reason: R pinky pain / Spl. Instructions: / History: Comparison: None. Findings: There is acute traumatic dorsal plate avulsion fracture at the base of the distal phalanx of the reji le finger. There is intra-articular extension of the fracture. The small fracture fragment is displac ed 1.5 mm proximally. There is soft tissue swelling. The joint spaces are maintained. The mineralizat ion is normal. IMPRESSION: Acute traumatic fracture at the dorsal base of the distal phalanx. Electronically signed by: Shady Devine MD (08/10/2021 6:36 AM) [facility]
[2021-08-10 06:42] LABS: BACTERIA,URINE 0 /HPF (0-FEW); RBC,URINE TNTC /HPF (0-2); WBC,URINE 0 /HPF (0-4)
[2021-08-10] MEDS ORDERED: IOHEXOL 300 MG/ML 100ML VIAL. IV ONE (07:00)
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
== END 2021-08-10 09:00 | disposition home or self-care (01) ==
LOC: ER 04:05
DX: S62.636A Displaced fracture of distal phalanx of right little finger, initial encounter for closed fracture (principal); S09.90XA Unspecified injury of head, initial encounter; E11.9 Type 2 diabetes mellitus without complications; I10 Essential (primary) hypertension; F20.9 Schizophrenia, unspecified; F43.10 Post-traumatic stress disorder, unspecified; F17.200 Nicotine dependence, unspecified, uncomplicated; F10.20 Alcohol dependence, uncomplicated; Y90.9 Presence of alcohol in blood, level not specified; Z88.8 Allergy status to other drugs, medicaments and biological substances; Y08.89XA Assault by other specified means, initial encounter; Y93.89 Activity, other specified; Y92.89 Other specified places as the place of occurrence of the external cause; Y99.8 Other external cause status
CPT/HCPCS: 26755; 36415; 70450; 73140; 74177; 80053; 81001; 81025; 85025; 87086; 99285; J3490; Q9967

== ENCOUNTER 2021-08-21 16:18 | Emergency (ER) | payer OTHER ==
[~2021-08-21] VITALS: Ht 154.9 cm; Wt 51.2 kg
[2021-08-21] MEDS ORDERED: cefTRIAXone IM 500 MG VIAL. IM ONE (17:00)
[2021-08-21] MEDS ORDERED: DOXYCYCLINE HYCLATE 100 MG TABLET PO ONE (17:00)
--- NOTE | 2021-08-21 17:00 | PHYS DOC ---
Past Medical History Past Medical History: Diabetes-Type II, Hypertension, Hepatitis, Seizure, Schizophrenia, UTI, Other Additional Past Medical Histor: LUPUS, PTSD Past Surgical History: Tubal ligation Additional Past Surgical Histo: LEFT FOOT SURGERY, CYST REMOVED FROM OVARY, PARATHYROID REMOVAL, nephrectom Smoking Status: Current Every Day Smoker Additional Information: 1 ppd Alcohol Use: None Drug Use: Cocaine, Marijuana Social History Narrative: refuses to answer General Adult EDM: Chief Complaint: PAIN ON URINATION HPI: HPI: Patient is a 45-year-old female who presents to the emergency department for vaginal odor and white thick discharge that started 2 days ago. She is also reporting urinary frequency. History of a nephrectomy. Patient denies any vaginal itching, vaginal bleeding, fevers, nausea, vomiting. Patient would like to be tested for STIs and she would like prophylactic treatment. Review of Systems: Review of Systems: Constitutional: See HPI GI: Reports suprapubic pain : See HPI LEVEL VIAL INSPECTOR: See HPI Heart Score: C/O Chest Pain: N/A Risk Factors: Risk Factors: DM, Current or recent (<one month) smoker, HTN, HLP, family history of CAD, obesity. Risk Scores: Score 0 - 3: 2.5% MACE over next 6 weeks - Discharge Home Score 4 - 6: 20.3% MACE over next 6 weeks - Admit for Clinical Observation Score 7 - 10: 72.7% MACE over next 6 weeks - Early Invasive Strategies Allergies: Allergies: Allergies Coded Allergies Type Severity Reaction Last Updated Verified prochlorperazine Allergy Severe angioedema 08/21/21 Yes haloperidol Adverse Reaction Severe violent psychosis 08/21/21 Yes lorazepam Adverse Reaction Severe violent psychosis 08/21/21 Yes Physical Exam: PE: Constitutional: Well developed, well nourished, no acute distress, non-toxic appearance. [] HENT: Normocephalic, atraumatic, bilateral external ears normal, oropharynx moist, no oral exudates, nose normal. [] Eyes: PERRL, EOMI, conjunctiva normal, no discharge. [] Neck: Normal range of motion, no stridor Cardiovascular:Heart rate regular rhythm, no murmur [] Lungs & Thorax: Bilateral breath sounds clear to auscultation [] Abdomen: Bowel sounds normal, soft, suprapubic tenderness with palpation, no abdominal rigidity or guarding, no rebound tenderness,, no masses, no pulsatile masses. [] Skin: Warm, dry, no erythema, no rash. [] Back: No tenderness, no CVA tenderness. [] Extremities: No tenderness, no cyanosis, no clubbing, ROM intact, no edema. [] Neurologic: Alert and oriented X 3, normal motor function, normal sensory function, no focal deficits noted. [] Psychologic: Affect normal, judgement normal, mood normal. [] Pelvic exam: External genitalia is normal-appearing without any lesions or redness Cervical os is closed and normal-appearing, patient does have some white/green thin vaginal discharge No adnexal tenderness, positive CMT, negative chandelier sign Current Patient Data: Labs: Laboratory Tests Test 08/21/21 16:30 Urine Collection Type Unknown Urine Color Yellow Urine Clarity Clear Urine pH 6.5 Urine Specific [place] 1.015 Urine Protein Negative mg/dL Urine Glucose (UA) Negative mg/dL Urine Ketones (Stick) Negative mg/dL Urine Blood Negative Urine Nitrite Negative Urine Bilirubin Negative Urine Urobilinogen Dipstick 0.2 mg/dL Urine Leukocyte Esterase Negative Urine RBC Occ /HPF Urine WBC Occ /HPF Urine Squamous Epithelial Cells Mod /LPF Urine Bacteria Few /HPF Current Medications Medications (Trade) Dose Ordered Sig/Mayank Route PRN Reason Start Time Stop Time Status Last Admin Dose Admin Ceftriaxone Sodium (Rocephin Im) 500 mg 1X ONCE IM 08/21/21 17:00 08/21/21 17:01 DC Doxycycline Hyclate (Vibra-Tab) 100 mg 1X ONCE PO 08/21/21 17:00 08/21/21 17:01 DC Vital Signs: Vital Signs Date Time Temp Pulse Resp B/P (MAP) Pulse Ox O2 Delivery O2 Flow Rate FiO2 08/21/21 16:25 98.1 88 18 128/89 (102) 98 Room Air 98.1 EKG: EKG: [] Course & Med Decision Making: Course & Med Decision Making Pertinent Labs and Imaging studies reviewed. (See chart for details) [] Patient presents to the emergency department for urinary frequency and vaginal discharge and odor. Urinalysis and test performed. Patient will be tested for gonorrhea, chlamydia, BV, trichomonas. Patient would like prophylactic treatment for gonorrhea and chlamydia and this was ordered for patient. Patient will be notified of her STI results when they become available in approximately 2 days and she is advised to avoid sexual intercourse for 14 days. Patient's UA was unremarkable. It did not have any leukocytes, nitrates but occasional white blood cells and few bacteria with moderate squamous cells indicating contamination. Wet prep was negative for yeast and trichomonas but did show clue cells and bacterial vaginosis. Patient will be treated for gonorrhea/chlamydia/BV/PID as she does have CMT. I discussed with patient all findings as well as the need to follow-up with PCP for further evaluation and treatment or return to the ER if any new or worsening symptoms. Strict return precautions were also discussed at length. Patient voiced understanding and agreement with the plan. Patient is hemodynamically stable at the time of disposition. Dragon Disclaimer: MobileRQ Disclaimer: This electronic medical record was generated, in whole or in part, using a voice recognition dictation system. Departure Departure Impression: Primary Impression: Bacterial vaginosis Additional Impression: Encounter for screening for infections with a predominantly sexual mode of transmission Disposition: HOME / SELF CARE / HOMELESS Condition: GOOD Referrals: NO PCP (PCP) Patient Instructions: Bacterial Vaginosis, Sexually Transmitted Disease Additional Instructions: Emergency department for vaginal odor and discharge. Your urinalysis did not show any infection. You requested to be prophylactically treated for gonorrhea and chlamydia which was a shot that was given to you in the emergency department and doxycycline. You were positive for bacterial vaginosis which is an overgrowth of your normal vaginal karo. This will be treated with metronidazole. You are also being treated for pelvic inflammatory disease. Please start and finish these medications completely. Metronidazole may cause severe vomiting when used with alcohol so please do not drink alcohol while taking this medication. You will receive results of your STI testing in approximately 2 days. When you receive these results if you are positive for anything please notify your sexual partners. Avoid any sexual contact for 2 weeks. Follow-up with your primary care provider tomorrow regarding your emergency department visit. If you require comprehensive STI testing please follow-up with the health department. Return to the emergency department if you develop abdominal pain, urinary symptoms, severe back pain, intractable nausea or vomiting, high fevers refractory to treatment, severe pelvic pain, vaginal bleeding or any new or worsening concerns. Scripts Metronidazole (METRONIDAZOLE) 500 Mg Tablet 1 TAB PO BID for 7 Days, #14 TAB 0 Refills Prov: JASON LIVINGSTON ROOFING TECHNICIAN 08/21/21 Doxycycline Hyclate (DOXYCYCLINE HYCLATE) 100 Mg Tablet 1 TAB PO BID for 14 Days, #28 TAB 0 Refills Prov: JASON LIVINGSTON APRN 08/21/21 JASON LIVINGSTON APRN Aug 21, 2021 17:00
[2021-08-21 17:07] LABS: BILIRUBIN,URINE NEGATIVE (NEG); CLARITY,URINE CLEAR; COLOR,URINE YELLOW; NITRITE,URINE NEGATIVE (NEG); PH,URINE 6.5 (<5.0-8.0); PROTEIN,URINE NEGATIVE (NEG-TRACE); UROBILINOGEN,URINE 0.2 mg/dL (0.2 mg/dL)
[2021-08-21 17:11] LABS: BACTERIA,URINE FEW /HPF (0-FEW)
[2021-08-21 17:12] LABS: RBC,URINE OCC /HPF (0-2); WBC,URINE OCC /HPF (0-4)
[2021-08-21] MEDS ORDERED: METR-34 PO (17:31)
[2021-08-21] MEDS ORDERED: DOXY100T PO (17:31)
[2021-08-21 17:51] LABS: U PREG PATIENT NEGATIVE (NEG)
[2021-08-22 20:08] LABS: GC PROBE Negative (Negative)
== END 2021-08-21 18:01 | disposition home or self-care (01) ==
LOC: ER 16:18
DX: Z11.3 Encounter for screening for infections with a predominantly sexual mode of transmission (principal); N76.0 Acute vaginitis; B96.89 Other specified bacterial agents as the cause of diseases classified elsewhere; E11.9 Type 2 diabetes mellitus without complications; I10 Essential (primary) hypertension; F20.9 Schizophrenia, unspecified; F17.200 Nicotine dependence, unspecified, uncomplicated; Z87.440 Personal history of urinary (tract) infections; Z88.8 Allergy status to other drugs, medicaments and biological substances
CPT/HCPCS: 81001; 81025; 87491; 87591; 96372; 99284; J0696; Q0111

== ENCOUNTER 2021-09-11 16:41 | Emergency (ER) | payer OTHER ==
[~2021-09-11] VITALS: Ht 154.9 cm; Wt 49.7 kg
[~2021-09-11 16:41] MED LIST changes: +DOXY100T PO; +METR-34 PO
[2021-09-11] MEDS ORDERED: KETOROLAC 60 MG/2 ML VIAL. IM ONE (17:30)
[2021-09-11 17:49] VITALS: BP 100/74
[2021-09-11 18:05] LABS: BILIRUBIN,URINE NEGATIVE (NEG); CLARITY,URINE CLOUDY; COLOR,URINE YELLOW; PH,URINE 6.5 (<5.0-8.0); PROTEIN,URINE TRACE mg/dL (NEG-TRACE)
[2021-09-11 18:06] LABS: NITRITE,URINE NEGATIVE (NEG); UROBILINOGEN,URINE 0.2 mg/dL (0.2 mg/dL)
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
[2021-09-11 18:09] LABS: BACTERIA,URINE 0 /HPF (0-FEW)
--- NOTE | 2021-09-11 18:14 | PHYS DOC ---
Past Medical History Past Medical History: Diabetes-Type II, Hypertension, Hepatitis, Seizure, Schizophrenia, UTI, Other Additional Past Medical Histor: LUPUS, PTSD, born with one kidney Past Surgical History: Tubal ligation Additional Past Surgical Histo: LEFT FOOT SURGERY, CYST REMOVED FROM OVARY, PARATHYROID REMOVAL, nephrectom Smoking Status: Current Every Day Smoker Alcohol Use: None Drug Use: Cocaine, Marijuana General Adult EDM: Chief Complaint: FINGER INJURY HPI: HPI: Patient is a 45 female presents to the emergency department concerning right pinky finger pain after stubbing it into a piece of firewood today at approximately noon. Patient reports she also has a strange smell to her urine and fears she may have a urinary tract infection. Patient reports in July of this year she was seen here for a fractured right pinky finger, it was reduced and placed in a splint. Patient states she did not follow-up with the recommended hand surgeon and took her splint off about 2 weeks later because it started to produce a foul odor, patient states that her fingertip has been bent funny and she has been unable to move it right since the original injury. Patient states she had not have the time to have her broken finger reevaluated until today when she stubbed it on wood and experienced a 10 out of 10 pain. Patient denies taking pain medications, states she would like a shot of Toradol and her urine checked for urinary tract infection. Patient denies increased urinary frequency, urinary burning, urinary pressure, hematuria or other dysuria, patient denies vaginal discharge, denies STI concerns. Patient states that the last time she had a urinary tract infection her urine smelled weird and has a similar smell today. Patient denies recent fever or chills, denies chest pains or chest palpitations, denies chest congestion or nasal congestion. Patient denies dizziness, headaches, syncopal or near syncopal episodes, patient denies other physical complaints or physical concerns. Patient reports she is a daily cigarette smoker, denies alcohol use, states she uses methamphetamines on occasion when she can get a hold of them. Patient denies other illicit drug use. Review of Systems: Review of Systems: 14 body systems of review of systems have been reviewed. See HPI for pertinent positives and negative responses, otherwise all other systems are negative, nonpertinent or noncontributory. Constitutional: Negative except as outlined in HPI above. Skin: Negative except as outlined in HPI above. Eyes: Negative except as outlined in HPI above. HENT: Negative except as outlined in HPI above. Respiratory: Negative except as outlined in HPI above. Cardiovascular: Negative except as outlined in HPI above. GI: Negative except as outlined in HPI above. : Negative except as outlined in HPI above. Musculoskeletal: Negative except as outlined in HPI above. Integument: Negative except as outlined in HPI above. Neurologic: Negative except as outlined in HPI above. Endocrine: Negative except as outlined in HPI above. Lymphatic: Negative except as outlined in HPI above. Psychiatric: Negative except as outlined in HPI above. Heart Score: C/O Chest Pain: No Risk Factors: Risk Factors: DM, Current or recent (<one month) smoker, HTN, HLP, family history of CAD, obesity. Risk Scores: Score 0 - 3: 2.5% MACE over next 6 weeks - Discharge Home Score 4 - 6: 20.3% MACE over next 6 weeks - Admit for Clinical Observation Score 7 - 10: 72.7% MACE over next 6 weeks - Early Invasive Strategies Current Medications: Current Medications Medications (Trade) Dose Ordered Sig/Mayank Start Time Stop Time Status Last Admin Dose Admin Ketorolac Tromethamine (Toradol Im) 60 mg 1X ONCE 09/11/21 17:30 09/11/21 17:31 DC 09/11/21 17:46 60 MG Allergies: Allergies: Allergies Coded Allergies Type Severity Reaction Last Updated Verified prochlorperazine Allergy Severe angioedema 08/21/21 Yes haloperidol Adverse Reaction Severe violent psychosis 08/21/21 Yes lorazepam Adverse Reaction Severe violent psychosis 08/21/21 Yes Physical Exam: PE: Constitutional: Well developed, well nourished, no acute distress, non-toxic appearance. 45-year-old female is anxious in appearance otherwise in no apparent distress. HENT: Normocephalic, atraumatic. Eyes: Conjunctiva normal, no discharge. Neck: Normal range of motion, no stridor. Cardiovascular: No cyanosis appreciated, distal cap refill less than 2 seconds. Lungs & Thorax: Patient is in no respiratory distress, no audible adventitious lung sounds appreciated. Abdomen: Nontender, no abnormalities noted. Skin: Warm, dry, no erythema, no rash. Back: No tenderness, no deformities. Extremities: No tenderness, no cyanosis, no clubbing, ROM intact, no edema. Right pinky finger distal tip deviated in flexed position, there is no bruising or other deformity appreciated, unable to extend distal finger joint related to pain. The distal cap refill is less than 2 seconds equal bilateral upper extremities, patient's has equal bilateral 2+ radial pulses. The patient can flex right pinky finger, however distal phalanx does not extend Norflex, appears to be in fixed position. There is no damage to the nail. There is no swelling appreciated. The skin is intact. Neurologic: Alert and oriented X 3, normal motor function, normal sensory function, no focal deficits noted. Psychologic: Affect normal, judgement normal, mood normal. Current Patient Data: Labs: Laboratory Tests Test 09/11/21 17:19 POC Urine HCG, Qualitative Hcg negative (Negative) Vital Signs: Vital Signs Date Time Temp Pulse Resp B/P (MAP) Pulse Ox O2 Delivery O2 Flow Rate FiO2 09/11/21 17:49 88 20 100/74 (83) 96 Room Air 09/11/21 17:06 97.9 97.9 EKG: EKG: [] Radiology/Procedures: Radiology/Procedures: STATUS: REG ER ORD. PHYSICIAN: ANDREW RIOS APRN REASON: Jammed right pinky into a piece of wood PROCEDURE: HAND RIGHT 3V Exam: Right hand 3 views INDICATION: Jammed right pinky in 2 pieces would TECHNIQUE: Frontal, lateral and oblique views of the right hand Comparisons: None FINDINGS: There is a mildly displaced fracture at the distal phalanx of the first digit with likely intra-articular extension seen best on lateral view. Additionally there is a fairly displaced fracture at the distal phalanx of the fifth digit with surrounding soft tissue swelling. Bone mineralization is normal. Joint spaces are well-maintained. IMPRESSION: 1. Mildly displaced fracture at the distal phalanx of the fifth digit. 2. Subtle obliquely oriented fracture at the distal phalanx of the first digit with likely intra-articular extension. Correlate with point tenderness. Electronically signed by: Juan Luis Munoz MD (09/11/2021 6:05 PM) [facility] Course & Med Decision Making: Course & Med Decision Making Pertinent Labs and Imaging studies reviewed. (See chart for details) 45-year-old female, vital signs reviewed, presents to the emergency room concerning right pinky finger pain after jamming it to a piece of wood. Physical examination concerning for right pinky finger injury. Will order x- ray, IM Toradol, urinalysis assay, urine test. The patient's urine is not infected, she is not for urine test. Discussed these findings with patient, the x-ray radiologist interpre tation is still pending patient gave verbal understanding of pending study, reports her pain is feeling much better now since receiving a Toradol injection. Patient's x-ray concerning for first distal digit fracture, it was recommended to correlate with physical examination, there was no pain to palpation or movement of the thumb joint. Radial interpretation also raise mildly displaced distal phalanx fracture, discussed findings with ED attending physician Dr. Ferreira who recommended digital block and reduction with splint application, follow-up with hand surgeon. At 1820, went to review radiologic findings and ED attendings recommendations of fracture of the right pinky finger distal phalanx with patient, patient was not in the room. ED nurse in area did not see patient leave the emergency department. Look for patient and ED in ED bathrooms, asked security about patient who reports seeing the patient leave and walk to the parking lot and into a POV on leave. Patient has eloped from the emergency department prior to receiving diagnostic information and recommendation for treatment. At 182, attempted to call patient using telephone number left with admitting clerks, this is not a working number. Patient has eloped from the emergency department prior to receiving recommended treatment. Chrissy Disclaimer: Chrissy Disclaimer: This electronic medical record was generated, in whole or in part, using a voice recognition dictation system. Departure Departure Impression: Primary Impression: Eloped from emergency department Additional Impression: Closed fracture of base of distal phalanx of finger Disposition: 07 LEFT AWOL/ELOPED Referrals: NO PCP (PCP) ANDREW RIOS APRN Sep 11, 2021 18:14
== END 2021-09-11 18:20 | disposition left against medical advice (07) ==
LOC: ER 16:41
DX: S62.636A Displaced fracture of distal phalanx of right little finger, initial encounter for closed fracture (principal); E11.9 Type 2 diabetes mellitus without complications; I10 Essential (primary) hypertension; F20.9 Schizophrenia, unspecified; F17.210 Nicotine dependence, cigarettes, uncomplicated; F43.10 Post-traumatic stress disorder, unspecified; Z88.8 Allergy status to other drugs, medicaments and biological substances; W23.0XXA Caught, crushed, jammed, or pinched between moving objects, initial encounter; Y93.89 Activity, other specified; Y92.89 Other specified places as the place of occurrence of the external cause; Y99.8 Other external cause status
CPT/HCPCS: 73130; 81001; 81025; 87086; 96372; 99284; J1885

== ENCOUNTER 2021-11-15 05:40 | Emergency (ER) | payer OTHER ==
[~2021-11-15] VITALS: Ht 154.9 cm; Wt 55.0 kg
[2021-11-15 05:49] VITALS: BP 154/92
[2021-11-15] MEDS ORDERED: HYDR-2759 PO (05:55)
[2021-11-15] MEDS ORDERED: CLIN150C16 PO (05:55)
[2021-11-15] MEDS ORDERED: IBUP-1027 PO (05:55)
--- NOTE | 2021-11-15 05:56 | PHYS DOC ---
Past Medical History Past Medical History: Diabetes-Type II, Hypertension, Hepatitis, Seizure, Schizophrenia, UTI, Other Additional Past Medical Histor: LUPUS, PTSD, born with one kidney Past Surgical History: Tubal ligation Additional Past Surgical Histo: LEFT FOOT SURGERY, CYST REMOVED FROM OVARY, PARATHYROID REMOVAL, nephrectom Smoking Status: Current Every Day Smoker Alcohol Use: None Drug Use: Cocaine, Marijuana General Adult EDM: Chief Complaint: WOUND CHECK HPI: HPI: Patient is a 46 year old female who present to ER for evaluation of dental pain, facial swelling, right lower extremity wound. Patient says she had upper dental swelling abscess for a week. Patient also had history of MRSA, patient has some wound on her right lower extremity about a week ago, patient went to [facility], patient said they put her on amoxicillin for but she did not get better so she called EMS to take her here for evaluation tonight. Patient denies any fever. Review of Systems: Review of Systems: Constitutional: Denies fever or chills. [] Eyes: Denies change in visual acuity. [] HENT: Denies nasal congestion or sore throat. Positive for dental pain as well Respiratory: Denies cough or shortness of breath. [] Cardiovascular: Denies chest pain or edema. [] GI: Denies abdominal pain, nausea, vomiting, bloody stools or diarrhea. [] : Denies dysuria. [] Musculoskeletal: Denies back pain or joint pain. [] Integument: Positive for right lower extremity wound Neurologic: Denies headache, focal weakness or sensory changes. [] Endocrine: Denies polyuria or polydipsia. [] Lymphatic: Denies swollen glands. [] Psychiatric: Denies depression or anxiety. [] Heart Score: C/O Chest Pain: N/A Risk Factors: Risk Factors: DM, Current or recent (<one month) smoker, HTN, HLP, family history of CAD, obesity. Risk Scores: Score 0 - 3: 2.5% MACE over next 6 weeks - Discharge Home Score 4 - 6: 20.3% MACE over next 6 weeks - Admit for Clinical Observation Score 7 - 10: 72.7% MACE over next 6 weeks - Early Invasive Strategies Current Medications: Current Medications Medications (Trade) Dose Ordered Sig/Mayank Start Time Stop Time Status Last Admin Dose Admin Clindamycin HCl (Cleocin) 300 mg 1X ONCE 11/15/21 06:00 5/6/22 06:01 UNV Diphenhydramine HCl (Benadryl) 25 mg 1X ONCE 11/15/21 06:00 11/15/21 06:01 UNV Ketorolac Tromethamine (Toradol Im) 60 mg 1X ONCE 11/15/21 06:00 11/15/21 06:01 UNV Methylprednisolone Sodium Succinate (SOLU-Medrol 125MG VIAL) 125 mg 1X ONCE 11/15/21 06:00 11/15/21 06:01 UNV Allergies: Allergies: Allergies Coded Allergies Type Severity Reaction Last Updated Verified prochlorperazine Allergy Severe angioedema 08/21/21 Yes haloperidol Adverse Reaction Severe violent psychosis 08/21/21 Yes lorazepam Adverse Reaction Severe violent psychosis 08/21/21 Yes Physical Exam: PE: Constitutional: Well developed, well nourished, no acute distress, non-toxic appearance. [] HENT: Normocephalic, atraumatic, bilateral external ears normal, oropharynx moist, no oral exudates, nose normal. Right upper jaw swelling, right upper gumline swelling with multiple teeth with cavities. NO TRISMUS. Eyes: PERRLA, EOMI, conjunctiva normal, no discharge. [] Neck: Normal range of motion, no tenderness, supple, no stridor. [] Cardiovascular:Heart rate regular rhythm, no murmur [] Lungs & Thorax: Bilateral breath sounds clear to auscultation [] Abdomen: Bowel sounds normal, soft, no tenderness, no masses, no pulsatile masses. [] Skin: Warm, dry, no erythema, no rash. [] Back: No tenderness, no CVA tenderness. [] Extremities: No tenderness, no cyanosis, no clubbing, ROM intact, no edema. MULTIPLE WOUNDS ON RIGHT LEG, NO DRAINAGE. Neurologic: Alert and oriented X 3, normal motor function, normal sensory function, no focal deficits noted. [] Psychologic: Affect normal, judgement normal, mood normal. [] Current Patient Data: Labs: Current Medications Medications (Trade) Dose Ordered Sig/Mayank Route PRN Reason Start Time Stop Time Status Last Admin Dose Admin Ketorolac Tromethamine (Toradol Im) 60 mg 1X ONCE IM 11/15/21 06:15 11/15/21 06:16 11/15/21 06:09 Diphenhydramine HCl (Benadryl) 25 mg 1X ONCE PO 11/15/21 06:15 11/15/21 06:16 11/15/21 06:10 Clindamycin HCl (Cleocin) 300 mg 1X ONCE PO 11/15/21 06:15 11/15/21 06:16 11/15/21 06:10 Methylprednisolone Sodium Succinate (SOLU-Medrol 125MG VIAL) 125 mg 1X ONCE IM 11/15/21 06:15 11/15/21 06:16 11/15/21 06:08 Ondansetron HCl (Zofran Odt) 4 mg 1X ONCE PO 11/15/21 06:30 11/15/21 06:31 11/15/21 06:10 Acetaminophen/ Hydrocodone Bitart (Lortab 5325) 1 tab 1X ONCE PO 11/15/21 06:30 11/15/21 06:31 11/15/21 06:09 EKG: EKG: [] Radiology/Procedures: Radiology/Procedures: [] Course & Med Decision Making: Course & Med Decision Making Pertinent Labs and Imaging studies reviewed. (See chart for details) Patient is a 46-year-old female who present to ER with multiple problem. Patient had infected dental carry, dental abscess. Patient also have several w ounds on her right lower extremity with cellulitis apparent. Patient will be put on clindamycin for the infection. Patient will be given pain medication as well. Patient will need to follow-up with a dentist for outpatient reevaluation and treatment on Thursday. Chrissy Disclaimer: Chrissy Disclaimer: This electronic medical record was generated, in whole or in part, using a voice recognition dictation system. Departure Departure Impression: Primary Impression: Dental abscess Additional Impression: Cellulitis of right leg Disposition: HOME / SELF CARE / HOMELESS Condition: STABLE Referrals: NO PCP (PCP) Please follow up with your dentist on Thursday for reevaluation. Patient Instructions: Cellulitis, Dental Abscess Additional Instructions: [facility] [address] [place] [address] [facility] [address] [place] [address] [address] [facility] [address] [place] [address] [facility] [address] [place] [address] [facility] [address] [place] [address] [address] [place] [address] [facility] [address] [place] [address] [facility] [address] [place] [address] [facility] [address] [place] [address] Scripts Ibuprofen (IBUPROFEN) 400 Mg Tablet 400 MG PO PRN Q6HRS PRN for INFLAMMATION, #30 TAB Prov: BEATRIZ MANRIQUEZ DO 11/15/21 Clindamycin Hcl (CLINDAMYCIN HCL) 150 Mg Capsule 300 MG PO QID for 10 Days, #80 CAP Prov: BEATRIZ MANRIQUEZ DO 11/15/21 Hydrocodone/Acetaminophen (Hydrocodone-Acetamin 5-325 mg) 1 Each Tablet 1 EACH PO Q6HRS PRN for PAIN, #15 TAB Prov: BEATRIZ MANRIQUEZ DO 11/15/21 BEATRIZ MANRIQUEZ DO November 15, 2021 05:56
[2021-11-15] MEDS ORDERED: diphenhydrAMINE HCL 25 MG CAPSULE PO ONE (06:15)
[2021-11-15] MEDS ORDERED: CLINDAMYCIN HCL 150 MG CAPSULE. PO ONE (06:15)
[2021-11-15] MEDS ORDERED: KETOROLAC 60 MG/2 ML VIAL. IM ONE (06:15)
[2021-11-15] MEDS ORDERED: methylPREDNISolone SOD SUCC PF 125 MG/2 ML VIAL. IM ONE (06:15)
[2021-11-15] MEDS ORDERED: HYDROcodone/APAP 5/325MG 1 TAB TABLET PO ONE (06:30)
[2021-11-15] MEDS ORDERED: ONDANSETRON ODT 4 MG TAB.RAPDIS. PO ONE (06:30)
== END 2021-11-15 07:12 | disposition home or self-care (01) ==
LOC: ER 05:40
DX: K04.7 Periapical abscess without sinus (principal); L03.115 Cellulitis of right lower limb; E11.9 Type 2 diabetes mellitus without complications; I10 Essential (primary) hypertension; F20.9 Schizophrenia, unspecified; F17.200 Nicotine dependence, unspecified, uncomplicated
CPT/HCPCS: 96372; 99284; J1885; J2930; Q0163